=== PATIENT | male | born 1960 | race African-American/Black ===

== ENCOUNTER 2021-05-24 10:51 | Day surgery (SDC) | payer OTHER, SELFPAY ==
[2021-05-18 10:31] VITALS: BMI 36.6
--- NOTE | 2021-05-21 13:42 | HO.ANESPROP2 ---
Documented by User: Jia Larsen NP 05/21/21 13:43 HPI - Anesthesia Eval Consult details Narrative: 60yo M for Colonoscopy [facility] Past Medical History Medical History Arthritis Asthma COVID-19 vaccine series completed Family history of sickle cell anemia PTSD (post-traumatic stress disorder) Ulcerative colitis Surgical History Surgical History H/O colonoscopy Hx of elbow surgery Hx of right knee surgery Hx of shoulder surgery Social History Social History Are you a primary director of career resources to a significant other at home: No Do you presently have visiting nurse or other home services: No Patient Tobacco Use Status: Never used Tobacco Use of substances other than those prescribed or required for medical reasons: Yes Substance Use Type Other:: CBD gummies Have you been hit, kicked, punched, or otherwise hurt by someone within the past year? If so, by whom?: No Are you DNR?: No Advance Directives: No Advance Directives Information Provided: Yes (brochure mailed) Advance Directives on File: No Recently lost weight without trying: No Eating poorly because of decreased appetite: No Nutrition Risks: No Nutritional Risk Poor oral hygiene: No Meds Allergies Allergy/AdvReac Type Severity Reaction Status Date / Time No Known Allergies Allergy Unverified 05/24/21 12:24 Home Medications Medication Instructions Recorded Confirmed Last Taken Type budesonide-formoterol HFA 160 2 puff INHALATION BID 05/18/21 05/18/21 Unknown History mcg-4.5 mcg/actuation aerosol inhaler (Symbicort) bupropion HCl 300 mg 24 hr tablet, 300 mg PO QAM 05/18/21 05/18/21 Unknown History extended release lorazepam 0.5 mg tablet 1.5 mg PO BEDTIME 05/18/21 05/18/21 Unknown History mesalamine 800 mg tablet,delayed 2,400 mg PO TID PRN 05/18/21 05/18/21 Unknown History release (Asacol HD) Exam Exam Date and Time: May 21, 2021 1342 Height,Weight and Vital Signs: Height 5 ft 6 in Weight 102.965 kg Assessment and Plan Assessment Anesthesia Assessment: Chart Reviewed Documented by User: Rose Oliva MD 05/24/21 13:11 PMFSH Active Problems Active Problems: Increased BMI. Denies YVETTE/ snoring Asthma. Rare use of inhaler Past Medical History Medical History Arthritis Asthma COVID-19 vaccine series completed Family history of sickle cell anemia PTSD (post-traumatic stress disorder) Ulcerative colitis Family History Family history of problems with anesthesia: No Surgical History Surgical History H/O colonoscopy Hx of elbow surgery Hx of right knee surgery Hx of shoulder surgery History of Problems with Anesthesia: No Social History Social History Are you a primary director of career resources to a significant other at home: No Do you presently have visiting nurse or other home services: No Patient Tobacco Use Status: Never used Tobacco Use of substances other than those prescribed or required for medical reasons: Yes Substance Use Type Other:: CBD gummies Have you been hit, kicked, punched, or otherwise hurt by someone within the past year? If so, by whom?: No Are you DNR?: No Advance Directives: No Advance Directives Information Provided: Yes (brochure mailed) Advance Directives on File: No Recently lost weight without trying: No Eating poorly because of decreased appetite: No Nutrition Risks: No Nutritional Risk Poor oral hygiene: No Meds Allergies Allergy/AdvReac Type Severity Reaction Status Date / Time No Known Allergies Allergy Unverified 05/24/21 12:24 Home Medications Medication Instructions Recorded Confirmed Last Taken Type budesonide-formoterol HFA 160 2 puff INHALATION BID 05/18/21 05/18/21 Unknown History mcg-4.5 mcg/actuation aerosol inhaler (Symbicort) bupropion HCl 300 mg 24 hr tablet, 300 mg PO QAM 05/18/21 05/18/21 Unknown History extended release lorazepam 0.5 mg tablet 1.5 mg PO BEDTIME 05/18/21 05/18/21 Unknown History mesalamine 800 mg tablet,delayed 2,400 mg PO TID PRN 05/18/21 05/18/21 Unknown History release (Asacol HD) Exam Height,Weight and Vital Signs: Height 5 ft 6 in Weight 102.965 kg Vital Signs Temp Pulse Resp BP Pulse Ox 05/24/21 12:20 97.9 F 62 18 132/73 97 Airway Mallampati Class: II TM Dist: >3cm Neck ROM: Full Loose/Missing/Broken Teeth: No Heart: RRR Lungs: CTAB Assessment and Plan Assessment Anesthesia Assessment: Anesthesia Plan Discussed Final Anesthetic Review Family History of Problems with Anesthesia: No History of Problems with Anesthesia: No NPO: Yes ASA Class: II Final Preanesthetic Review: No Changes in Pt Med Stat, Meds/Allgs Chart Reviewed, Consent Obtained/Reviewed and Anes Risks/Benef Reviewed Patient Risk: Intermediate Procedure Risk: Low Assessment/Block/Sedation in SS: Assess/Block/Sedation-SS Anesthetic Plan Anesthetic Plan: MAC: Disposition: Standard PACU
[2021-05-24 12:20] VITALS: BP 132/73; PULSE 62; RESP 18; TEMP 36.6; O2SAT 97
[2021-05-24] MEDS: Lactated Ringers 1,000 ML 100 ML IVCONT (12:43)
[2021-05-24 14:05] VITALS: BP 99/67; PULSE 65; RESP 15; TEMP 37.2; O2SAT 99
--- NOTE | 2021-05-24 14:05 | P.BOP_ITS ---
Brief Operative Note Date of Service: 05/24/21 Pre-op diagnosis: Ulcerative colitis, Screening Post-op diagnosis: other (R/O Dysplasia) Procedure: Colonoscopy to the cecum and TI with biopsies Surgeon: Flash Herrera Anesthesia: MAC Was an Manager Product Support used for this Procedure?: No Estimated blood loss (mL): 3.0 Pathology: other (A. Asc. colon B. Transverse colon C. Desc. colon D. Sigmoid colon E. Rectum) Condition: stable Disposition: PACU
[2021-05-24 14:20] VITALS: BP 135/87; PULSE 88; RESP 16; TEMP 37.2; O2SAT 99
--- NOTE | 2021-05-25 01:11 | OP_ITS ---
SURGEON: Flash Herrera MD INDICATIONS: The patient presents for evaluation of underlying history of ulcerative colitis and colorectal cancer screening. Full consent has been obtained from him for this, including risks of bleeding and perforation. PREOPERATIVE DIAGNOSIS: POSTOPERATIVE DIAGNOSIS: PROCEDURE PERFORMED: Colonoscopy to cecum and terminal ileum with multiple biopsies. ESTIMATED BLOOD LOSS: COMPLICATIONS: ANESTHESIA: Medication used, monitored anesthesia care. ASSISTANTS: SPECIMENS: PREOPERATIVE DIAGNOSES: History of ulcerative colitis and colorectal cancer screening. POSTOPERATIVE DIAGNOSES: History of ulcerative colitis and colorectal cancer screening, rule out dysplasia, mild diverticulosis, small internal hemorrhoids. DESCRIPTION OF PROCEDURE: The patient was placed in the left lateral decubitus position. The digital rectal exam revealed no abnormalities. The Olympus video pediatric colonoscope was entered into the rectum and advanced easily to the cecum. Once in the cecum, I did identify cecal pouch with appendiceal orifice and a normal-appearing ileocecal valve. The terminal ileum was cannulated and appeared normal. The scope was withdrawn back in the colon. The entire cecum and ileocecal valves appeared normal, other than some very minimal areas of colitis with tiny ulcerations in the cecum, but this was very mild overall. The scope was slowly withdrawn, assessing all mucosal surfaces carefully. Preparation was excellent. I did not visualize any sign of active colitis, polyps, nor angiodysplasia. Random biopsies were obtained in the ascending colon, transverse colon, descending colon, sigmoid colon, and rectum. There was a mild amount of sigmoid diverticulosis. In the rectum, scope was retroflexed, visualizing some small internal hemorrhoids, but no other pathology. The rectal mucosa appeared normal. The scope was straightened and withdrawn from the patient. He tolerated the procedure well and was returned to recovery area in stable condition. IMPRESSION: 1. History of ulcerative colitis, rule out dysplasia. 2. Diverticulosis. PLAN: The results of the biopsy will be checked. Assuming there is no dysplasia, I would recommend a repeat colonoscopy in 5 years. He will otherwise see me on a p.r.n. basis. He was advised not to use any aspirin and NSAIDs for 1 week. MD MELLY Martinez/SOREN / [phone]
== END 2021-05-24 15:40 | disposition home or self-care (01) ==
PROVIDERS: PCP Nurse Practitioner Family; Visit Provider Internal Medicine
PROC: 0DJD8ZZ Inspection of Lower Intestinal Tract, Via Natural or Artificial Opening Endoscopic (ICD-10-PCS; CPT 45378; principal; 2021-05-24 12:10)
DX: Z12.11 Encounter for screening for malignant neoplasm of colon (principal); K51.90 Ulcerative colitis, unspecified, without complications; K57.30 Diverticulosis of large intestine without perforation or abscess without bleeding; K64.8 Other hemorrhoids; J45.909 Unspecified asthma, uncomplicated; F43.10 Post-traumatic stress disorder, unspecified; Z79.51 Long term (current) use of inhaled steroids; Z79.899 Other long term (current) drug therapy
CPT/HCPCS: 45380; 88305

== ENCOUNTER 2023-05-11 19:28 | Outpatient (REF) | payer OTHER, SELFPAY ==
--- NOTE | ~2023-05-11 | MR_ITS ---
EXAMINATION: MR KNEE WITHOUT CONTRAST, RIGHT CLINICAL INFORMATION: Right knee pain and numbness. COMPARISON: Right knee radiographs dated 06/21/2017 and report from a right knee MRI dated 08/22/2005. TECHNIQUE: MRI of the knee without contrast was performed using routine sequences on a high-field scanner. FINDINGS: MENISCI: Medial Meniscus: Heterogeneously increased T2 signal along the tibial articular surface and inner margin of the posterior horn, consistent with irregular fraying. Lateral Meniscus: Complex tearing of the anterior horn contacting both the femoral articular surface and inner margin. Tearing extends to the anterior root. LIGAMENTS: Cruciate: Postsurgical change consistent with anterior cruciate ligament reconstruction. The ligament graft is somewhat attenuated which could represent the surgical result versus a chronic partial tear. No edema or evidence of acute injury. Intact posterior cruciate ligament. Collateral: Intact EXTENSOR MECHANISM: Mild distal quadriceps tendinosis. Intact patellar tendon. Normal patellofemoral alignment. ARTICULAR CARTILAGE/BONE: Patellofemoral Compartment: Lateral patellar facet articular cartilage signal heterogeneity with fissuring and mild subchondral cystic change measuring up to 0.7 cm in ML dimension. Tiny marginal osteophytes. Medial Compartment: Mild articular cartilage signal heterogeneity with tiny marginal osteophytes. Lateral Compartment: Posterior weightbearing full-thickness articular cartilage loss with subchondral cystic change. Marginal osteophytes. JOINT FLUID AND BURSAE: Small joint effusion. MR/MR knee RT wo con IMPRESSION: 1. Irregular fraying along the tibial articular surface and inner margin of the medial meniscus posterior horn. 2. Complex tearing of the lateral meniscus anterior horn contacting both the femoral articular surface and inner margin. Tearing extends to the anterior root. 3. Anterior cruciate ligament reconstruction. The ligament graft is somewhat attenuated which could represent the surgical result versus a chronic partial tear. No evidence of acute ligament injury. 4. Moderate lateral as well as mild patellofemoral and medial compartment osteoarthritis. Small joint effusion.
== END 2023-05-11 19:29 | disposition home or self-care (01) ==
LOC: HO.MRI 19:28
PROVIDERS: PCP Nurse Practitioner Family; Visit Provider Internal Medicine Endocrinology, Diabetes & Metabolism
DX: M25.561 Pain in right knee (principal)
CPT/HCPCS: 73721

== ENCOUNTER 2024-07-01 07:17 | Day surgery (SDC) | payer OTHER, SELFPAY ==
--- OUTSIDE RECORDS SUMMARY | 2024-06-13 10:22 | XMS_ITS ---
Author Organization [facility] Address [address] [place] [address] Care Team Providers Care Surg Rn Name Role Phone Jensen HERRERA, Lang Primary Care Provider Unava Flash Perry Unavailable [phone] Allergies No Known Allergies REASON FOR VISIT Patient presents today for an ulcerative colitis Medications Medication SIG (Take, Route, Frequency, Duration) Notes Start Date End Date Status buPROPion HCl ER (XL) 300 MG Oral for 90 Active LORazepam 0.5 MG Oral for 30 3 pills at night Active Aleve as needed Not-Taking Symbicort 160-4.5 MCG/ACT 2 puffs Inhalation Twice a day Not-Taking Asacol HD 800 MG 3 tablets Orally twice a day He takes this extremely rarely when he thinks he might be having some colitis symptoms, but only takes it for one or 2 days Not-Taking Lialda 1.2 GM 4 Orally Take all 4 together once everyday for 90 days 11/06/2023 Active Mesalamine 400 MG 3 Orally Twice a day for 90 days 08/23/2022 Not-Taking Social History Alcohol Screen Question Answer Notes Did you have a drink contain ing alcohol in the past year? Yes How often did you have a dri nk containing alcohol in the past year? Never (0 point) How many drinks did you have on a typical day when you were drinking in the past year? 1 or 2 drinks (0 point) How often did you have 6 or more drinks on one occasion in the past year? Never (0 point) Points 0 Interpretation Negative Section Notes: Nonsmoker; no sig alcohol Vital Signs Blood pressure systolic 00 mm Hg 12/03/20 24 Blood pressure diastolic 00 mm Hg 024 Height 66.5 in 03/12/2024 Weight 220 lbs 03/12/2024 BMI 34.97 kg/m2 03/12/2024 Encounters Encounter Location Date Provider Diagnosis [facility] [address] [place] [address] 03/12/2024 Flash Herrera Ulcerative colitis without complications, unspecified location K51.90 ; Encounter for screening for malignant neoplasm of colon Z12.11 and Family history of colorectal cancer Z80.0 Assessments Encounter Date Diagnosis (ICD Code) Assessment Notes Treatment Notes Treatment Clinical Notes Section Notes 03/12/2024 Ulcerative colitis without complications, unspecified location (ICD-10 - K51.90) Overall, Arvin appears quite well. His ulcerative colitis remains in clinical remission on his current regimen of the mesalamine. I did advise him to continue this on a long-term basis. Given his long-standing history of colitis, the significant family history of rectal cancer in his sister, and his last colonoscopy approaching 3 years ago, I did recommend a followup colonoscopy for early 2024 in regard to further screening and surveillance. We did review the rationale for this in regard to colorectal cancer prevention and/or early detection. Full consent was obtained for this, including risks of bleeding and perforation. The procedure will be done with monitored anesthesia care. Arvin was very comfortable with this plan. Thank you again for allowing me to participate in Arvin's care. I shall continue to keep you advised of his progress. 03/12/2024 Encounter for screening for malignant neoplasm of colon (ICD-10 - Z12.11) Overall, Arvin appears quite well. His ulcerative colitis remains in clinical remission on his current regimen of the mesalamine. I did advise him to continue this on a long-term basis. Given his long-standing history of colitis, the significant family history of rectal cancer in his sister, and his last colonoscopy approaching 3 years ago, I did recommend a followup colonoscopy for early 2024 in regard to further screening and surveillance. We did review the rationale for this in regard to colorectal cancer prevention and/or early detection. Full consent was obtained for this, including risks of bleeding and perforation. The procedure will be done with monitored anesthesia care. Arvin was very comfortable with this plan. Thank you again for allowing me to participate in Arvin's care. I shall continue to keep you advised of his progress. 03/12/2024 Family history of colorectal cancer (ICD-10 - Z80.0) Overall, Arvin appears quite well. His ulcerative colitis remains in clinical remission on his current regimen of the mesalamine. I did advise him to continue this on a long-term basis. Given his long-standing history of colitis, the significant family history of rectal cancer in his sister, and his last colonoscopy approaching 3 years ago, I did recommend a followup colonoscopy for early 2024 in regard to further screening and surveillance. We did review the rationale for this in regard to colorectal cancer prevention and/or early detection. Full consent was obtained for this, including risks of bleeding and perforation. The procedure will be done with monitored anesthesia care. Arvin was very comfortable with this plan. Thank you again for allowing me to participate in Arvin's care. I shall continue to keep you advised of his progress. Plan Of Treatment Future Test Test Name Order Date COLONOSCOPY 03/12/2024 Next Appt Details Follow Up: prn, Reason: Provider Name:Flash Herrera , 07/01/2024 08:40:00 AM, [address] [place] [address], [phone], Progress Notes * GENIE MAURICIOINDOB:1960 (63 yo M)Acc No.[id number]:03/12/2024 Progress Notes Patient:?ARVIN MAURICIO Provider:?Flash Herrera MD :1960???Age:63 Y???Sex:Male Kg e:03/12/2024 Address:[address] [place], [place] [id number] Pcp:Lang Styles NP Subjective: * Chief Complaints: * ???Patient presents today fo r an ulcerative colitis * HPI: ???incontinence:? I saw Arvin in followup today in regard to his underlying history of ulcerative colitis, family history of colorectal cancer, and discussion of colorectal cancer screening. ?I last saw Arvin in April. Since that time he has been feeling well. His ulcerative colitis has remained in clinical remission. His mesalamine was changed by the [place] pharmacy to the longer acting mesalamine at 4.8 g daily rather than the b.i.d. mesalamine. He enjoys a good appetite, without any significant heartburn or dysphagia. His bowel movements remain regular without any diarrhea nor hematochezia. He denies abdominal pain, signs of jaundice, nor unintentional weight loss. His family history is notable for a sister having developed rectal cancer at approximately age 60. Arvin's last colonoscopy was in April of 2021 and was negative for any polyps, dysplasia, or significant active colitis. * ROS:?General/Constitutional:?Change in appetite?denies.?Chills?denies.?Fatigue?denies.?Ophthalmologic:?Comments?all negative.?ENT:?Comments?all negative.?Respiratory:?hemoptysis?denies.?Cough?denies.?Cardiovascular:?Chest pain?denies.?Orthopnea?denies.?Gastrointestinal:?Comments?See HPI for details.?Genitourinary:?Hematuria?denies.?Dysuria?denies.?Musculoskeletal:?Painful joints?denies.?Weakness?denies.?Skin:?Itching?denies.?Rash?denies.?Neurologic:?Headache?admits.?Seizures?denies.?Psychiatric:?Comments?all negative.? * Medical History:? * Surgical History:?right knee 2006right elbow 2015left shoulder 2014 * Hospitalization/Major Diagno stic Procedure:?No Hospitalization History. * Family History:?Father: dece ased, diagnosed with Heart disease.?Mother: alive, stroke 2004, diagnosed with Heart disease.?Siblings: alive, brother, diagnosed with Diabetes.? One son has Crohn's colitis. Sister with rectal cancer in her 60's. * Social History:?Tobacco Use:?Tobacco Use/Smoking?Patient is a: nonsmoker.?Drugs/Alcohol:?Alcohol Screen?Did you have a drink containing alcohol in the past year??Yes,?How often did you have a drink containing alcohol in the past year??Never (0 point),?How many drinks did you have on a typical day when you were drinking in the past year??1 or 2 drinks (0 point),?How often did you have 6 or more drinks on one occasion in the past year??Never (0 point),?Points?0,?Interpretation?Negative.?Miscellaneous:?Marital status: . 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 ???Nonsmoker; no sig alcohol. * Medications:?TakingbuPROPion HCl ER (XL) 300 MG Tablet Extended Release 24 Hour Oral LORazepam 0.5 MG Tablet Oral , Notes: 3 pills at nightLialda 1.2 GM Tablet Delayed Release 4 Orally Take all 4 together once everydayTaking buPROPion HCl ER (XL) 300 MG Tablet Extended Release 24 Hour Oral Taking LORazepam 0.5 MG Tablet Oral , Notes: 3 pills at nightTaking Lialda 1.2 GM Tablet Delayed Release 4 Orally Take all 4 together once everydayNot-Taking/PRNMesalamine 400 MG Capsule Delayed Release 3 Orally Twice a dayAsacol HD 800 MG Tablet Delayed Release 3 tablets Orally twice a day, Notes: He takes this extremely rarely when he thinks he might be having some colitis symptoms, but only takes it for one or 2 daysAleve as neededSymbicort 160-4.5 MCG/ACT Aerosol 2 puffs Inhalation Twice a dayMedication List reviewed and reconciled with the patientNot-Taking/PRN Mesalamine 400 MG Capsule Delayed Release 3 Orally Twice a dayNot-Taking/PRN Asacol HD 800 MG Tablet Delayed Release 3 tablets Orally twice a day, Notes: He takes this extremely rarely when he thinks he might be having some colitis symptoms, but only takes it for one or 2 daysNot-Taking/PRN Aleve as neededNot-Taking/PRN Symbicort 160-4.5 MCG/ACT Aerosol 2 puffs Inhalation Twice a dayMedication List reviewed and reconciled with the patient * Allergies:?N.K.D.A.yes[Aller gies Verified] Objective: * Vitals:?Wt: 220 lbs, Ht: 66. 5 in, BMI:34.97 Index, BP: 00/00 mm Hg. * Examination: ???General Examination: ?GENERAL APPEARANCE:?pleasant, well nourished, well developed, in no acute distress.?EYES:?sclera non-icteric.?ORAL CAVITY:?mucosa moist.?NECK/THYROID:?no cervical lymphadenopathy, neck supple.?SKIN:?nonjaundiced, no spider angiomata.?HEART:?S1, S2 normal.?LUNGS:?clear to auscultation bilaterally.?ABDOMEN:?normal bowel sounds, no guarding or rigidity, no guarding or rigidity, no masses palpable, soft, nontender, nondistended.?EXTREMITIES:?no edema.?NEUROLOGIC:?alert and oriented.? Assessment: * Assessment: 1.?Ulcerative colitis withou t complications, unspecified location - K51.90 (Primary)?2.?Encounter for screening for malignant neoplasm of colon - Z12.11?3.?Family history of colorectal cancer - Z80.0? Overall, Arvin appears quite well. His ulcerative colitis remains in clinical remission on his current regimen of the mesalamine. I did advise him to continue this on a long-term basis. Given his long-standing history of colitis, the significant family history of rectal cancer in his sister, and his last colonoscopy approaching 3 years ago, I did recommend a followup colonoscopy for early 2024 in regard to further screening and surveillance. We did review the rationale for this in regard to colorectal cancer prevention and/or early detection. Full consent was obtained for this, including risks of bleeding and perforation. The procedure will be done with monitored anesthesia care. Arvin was very comfortable with this plan. Thank you again for allowing me to participate in Arvin's care. I shall continue to keep you advised of his progress. Plan: * Treatment: 2.?Encounter for screening for malignant neoplasm of colon?Procedure: COLONOSCOPY (Ordered for 03/12/2024)* with MACsched fror 07/01/24 a t 9:40 ammiralax 3.?Family history of colorectal cancer?Procedure: COLONOSCOPY (Ordered for 03/12/2024)* with MACsched fror 07/01/24 a t 9:40 ammiralax * Procedure Codes:?3017F COLOR ECTAL CA SCREEN DOC [id number] TOBACCO [id number] BP SCR NOT PRFRM REC REASON NOS * Preventive Medicine:? ??Counseling:?Care goal follow-up plan:?Above Normal BMI Follow-up?Giving encouragement to exercise,?BMI management provided?Yes.? * Follow Up:?prn * * Sign off status: Completed true * Provider:?Flash Herrera MD Date:? 024 Generated for Argenis bishop/Preston/Carolsmitting on:?06/13/2024 10:22 AM EST History and Physical Notes * HPI (History of Present Illness) Category Sub-Category Detail Notes Category Not es incontinence I saw Arvin in followup today in regard to his underlying history of ulcerative colitis, family history of colorectal cancer, and discussion of colorectal cancer screening. I last saw Arvin in April. Since that time he has been feeling well. His ulcerative colitis has remained in clinical remission. His mesalamine was changed by the [place] pharmacy to the longer acting mesalamine at 4.8 g daily rather than the b.i.d. mesalamine. He enjoys a good appetite, without any significant heartburn or dysphagia. His bowel movements remain regular without any diarrhea nor hematochezia. He denies abdominal pain, signs of jaundice, nor unintentional weight loss. His family history is notable for a sister having developed rectal cancer at approximately age 60. Arvin's last colonoscopy was in April of 2021 and was negative for any polyps, dysplasia, or significant active colitis. Examination Category Sub-Category Detail Notes Category Not es General Examination GENERAL APPEARANCE: pleasant , well nourished, well developed, in no acute distress HEAD: EYES: sclera non-icteric EARS: NOSE: THROAT: NECK/THYROID: no cervical lymphade nopathy, neck supple HEART: S1, S2 normal CHEST: LUNGS: clear to auscultatio n bilaterally ABDOMEN: normal bowel sounds, no guarding or rigidity, no guarding or rigidity, no masses palpable, soft, nontender, nondistended NEUROLOGIC: alert and oriented SKIN: nonjaundiced, no spi leobardo angiomata EXTREMITIES: no edema PERIPHERAL PULSES: BACK: BREASTS: MUSCULOSKELETAL: MALE GENITOURINARY: LYMPH NODES: RECTAL EXAM: FEMALE GENITOURINARY: ORAL CAVITY: mucosa moist
--- OUTSIDE RECORDS SUMMARY | 2024-06-13 10:22 | XMS_ITS | Encounter Summary ---
Author Name [facility] [place] [facility] [place] Organization [facility] [facility] [place] Address [address] [place] [address] Care Team Providers Care Referral Agent Name Role Phone LANG STYLES Primary Care Provider Unavailmargarita ble Insurance Providers: All historical and current Section Date Range: From patient's date of to the date document was created. This section includes the names of all active insurance providers for the patient. Insurance Provider Type of Coverage Plan Name Start of Policy Coverage End of Policy Coverage Group Number Member ID Insurance Provider's Telephone Number Policy Kern's Name Patient's Relationship to Policy Kern CAREMARK PRESCRIPT JOSELINE [facility] Oct 08, 2017 RXTHP [id number] DARÍO SANDERS PATIENT [facility] POINT OF SERVICE [place] POS EXPLO RER* Oct 09, 2023 [place] POS EXPLORE R* [id number] [phone] DARÍO SANDERS PATIENT [facility] POINT OF SERVICE [place] POS EXPLO RER Oct 08, 2022 [id number] WYATT SANDERS SPOUSE [facility] POINT OF SERVICE [place] POS Oct 08, 2022 [id number] DARÍO SANDERS PATIENT [facility] PRES[facility] ION [address] [facility] PILGR IM* Oct 09, 2023 NONE [id number] [phone] DARÍO SANDERS PATIENT [facility] PRESCRIPT ION HP Oct 08, 2022 NONE [id number] DARÍO SANDERS PATIENT [facility] PRESCRIPT ION [address] [facility] PILGR IM Oct 08, 2022 NONE [id number] [phone] WYATT SANDERS SPOUSE [facility] POINT OF SERVICE NAVIG ATOR BY [facility] Oct 08, 2017 [id number] DARÍO SANDERS PATIENT Selected Encounter This section includes the information on record at ME for the Encounter. Date/Time Encounter Type Encounter Description Reason Provider Source Jun 07, 2024 08:30 AM OFFICE O/P EST HI 40 MIN PRIMARY CARE/MEDICINE ICD-10-CM M25.561 Pain in right knee JACOB STYLES Arnaud Encounter Template Text not used by ME Assessments - Encounter Diagnoses This section includes the primary and secondary diagnoses documented for the Encounter. Date/Time Primary/Secondary Diagnosis Diagnosis Name Provider Source Jun 07, 2024 08:50 AM PRIMARY Pain in right [facility] Jun 07, 2024 08:50 AM SECONDARY Ulcerative colitis, unspecified, without complications STYLES,WILL [facility] Jun 07, 2024 08:50 AM SECONDARY Unspecified asthma, uncomplicated STYLES,WILL [facility] Plan of Treatment: Future Appointments (+ 6 months) and Future Tests (+/- 45 days) The Plan of Treatment section includes future care activities for the patient from all ME treatmentfacilities. This section includes future appointments and future orders which are active, pending or scheduled. Active, Pending, and Scheduled Orders This section includes a listing of several types of active, pending, and scheduled orders, including clinic medications orders, diagnostic test orders, procedure orders and consult orders; where the start date of the order is 45 days before the date of the Encounter or 45 days after the date of theEncounter. The data comes from all ME treatment facilities. Test Date/Time Test Type Test Details Facility Name Jun 07, 2024 08:44 AM Consult Order [facility] Cons Machine Trimmer's Choice [facility] Lab Results: +/- 30 days of the encounter This section includes the Chemistry and Hematology Lab Results on record with ME for the patient. Radiology Reports and Pathology Reports are provided separately, in subsequent sections. Lab Results This section contains the Chemistry/Hematology Results that were resulted 30 days before or 30 daysafter the date of the Encounter. Date/Time Source Result Type Result - Unit Interpretation Reference Range Comment Jun 07, 2024 08:54 AM [facility] CBC Specimen Type: BLOOD No comment entered. Ordering Provider: JACOBO STYLES Report Released Date/Time: May 31, 2024 08:25 AM Reporting Lab: [address] [address] Performing Lab: [address] [address] WBC 7.21 10*3/uL 4.50-11.00 RBC 5.55 10*6/uL 4.23-5.66 HGB 15.7 g/dL 12.8-17 HCT 45.5 39.2-50.4 MCV 82.0 fL 82-99 MCHC 34.5 g/dL 30.8-35.1 PLT 379 10*3/uL H 140-360 RDW-CV 11.7 L 12.0-16.0 MCH 28.3 pg 26.2-32.6 Jun 07, 2024 08:54 AM [facility] BASIC METABOLIC PANEL (non-fasting) Specimen Type: SERUM No comment entered. Ordering Provider: JACOBO STYLES Report Released Date/Time: May 31, 2024 08:25 AM Reporting Lab: [address] [address] Performing Lab: [address] [address] UREA NITROGEN 12 mg/dL 7-25 GLUCOSE 118 mg/dL H 65-100 SODIUM 140 mmol/L 135-145 POTASSIUM 4.0 mmol/L 3.5-5.0 CHLORIDE 109 mmol/L 100-110 CO2 20 meq/L 20-30 CALCIUM 9.3 mg/dL 8.5-10.2 CREATININE, Serum 1.03 mg/dL 0.50-1.40 eGFR(CKD-EPI 2020) 82 mL/min >60 Jun 07, 2024 08:54 AM [facility] LIPID PANEL, NON FASTING Specimen Type: SERUM No comment entered. Ordering Provider: JACOBO STYLES Report Released Date/Time: May 31, 2024 08:25 AM Reporting Lab: [facility] [address] [facility] [address] Performing Lab: [facility] [address] [facility] [address] CHOLESTEROL 188 mg/dL TRIGLYCERIDE 66 mg/dL 0-150 LDL calculated 139 mg/dL H 0-129 CHOL/HDL 5.2 HDL CHOLESTEROL 36 mg/dL L 40-60 Jun 07, 2024 08:54 AM [facility] LIVER FUNCTION Specimen Type: SERUM No comment entered. Ordering Provider: JACOBO STYLES Report Released Date/Time: May 31, 2024 08:25 AM Reporting Lab: [facility] [address] [facility] [address] Performing Lab: [facility] [address] [facility] [address] PROTEIN,TOTAL 7.8 g/dL 6.0-8.3 ALBUMIN 4.0 g/dL 3.5-5.0 ALKALINE PHOSPHATASE 62 U/L 40-150 AST 23 U/L 5-34 ALT 36 U/L BILIRUBIN, TOTAL 0.6 mg/dL 0.2-1.2 Jun 07, 2024 08:54 AM [facility] PSA Specimen Type: SERUM No comment entered. Ordering Provider: JACOBO STYLES Report Released Date/Time: May 31, 2024 08:25 AM Reporting Lab: [facility] [address] [facility] [address] Performing Lab: [address] [address] PSA 0.79 ng/mL 0.00-4.00 Vital Signs: All taken on the encounter date This section contains inpatient and outpatient Vital Signs collected on the date of the Encounter. Date/Time Temperature Pulse Blood Pressure Respiratory Rate SP02 Pain Height Weight Body Mass Index Source Jun 07, 2024 08:26 AM 98.7 88 140/82 16 98 0 217 34 [facility] Social History: Smoking Status (Most current) and Tobacco Use (All prior to encounter date) This section includes the most current, and the historical, smoking and tobacco- related health factors from the ME facility where the Encounter took place. Current Smoking Status This section includes the most current smoking, or tobacco-related health factor, from the ME facility where the Encounter took place. Date/Time Current Smoking Status Comment Facil ity Dec 07, 2023 08:30 AM ME-TOBACCO NEVER USED ME [facility] Tobacco Use History This section includes a history of the smoking, or tobacco-related health factors, that were collected on or before the date of the Encounter. The data comes from the ME facility where the Encounter took place. Date/Time Smoking Status/Tobacco Use Comment F acility Jan 03, 2023 09:00 AM VA-TOBACCO NEVER USED [facility] Encounter Notes: All associated encounter notes This section contains the clinical notes associated to the Encounter. Date/Time Encounter Note(s) Provider Source Jun 07, 2024 08:44 AM PRIMARY CARE NURSE PRACTITIONER OUTPATIENT NOTE: LOCAL TITLE: NURSE PRACTITIONER OUTPATIENT NOTE STANDARD TITLE: PRIMARY CARE NURSE PRACTITIONER OUTPATIENT NOTE DATE OF NOTE: JUN 07, 2024@08:44 ENTRY DATE: JUN 07, 2024@08:44:14 AUTHOR: LANG STYLES COSIGNER: URGENCY: STATUS: COMPLETED Chief complaint: Patient is a 63 year old Lookout. HPI: Pleasant male Lookout here to follow up. Feeling well. Ongoing issues with right knee pain. Some benefit with gel but he is interested in a platelet rich plasma injection, he will follow back with ortho. Allergies: Patient has answered NKA The following VA and Non-VA meds were reconciled with patient. The patient was educated on the use of the medications including indication and side effects. Active and Recently Outpatient Medications (excluding Supplies): Active Outpatient Medications Status 1) LOTEPREDNOL ETABONATE 0.5% OPH SUSP INSTILL 1 DROP INTO THE ACTIVE LEFT EYE ONCE DAILY Indication: FOR INFLAMMATION OF THE EYE 2) MELOXICAM 15MG TAB TAKE ONE TABLET BY MOUTH ONCE DAILY ACTIVE 3) MESALAMINE 1200MG EC TAB TAKE FOUR TABLETS BY MOUTH ONCE ACTIVE (S) DAILY Active Non-VA Medications Status 1) Non-VA BUPROPION HCL 300MG 24HR SA TAB 300MG BY MOUTH ONCE ACTIVE DAILY Indication: FOR DEPRESSION 2) Non-VA LORAZEPAM 0.5MG TAB 0.5MG BY MOUTH THREE TIMES DAILY ACTIVE NEEDED Indication: FOR ANXIETY 3) Non-VA MARIJUANA MISCELLANEOUS GUMMIES DIRECTED AT ACTIVE BEDTIME 4) Non-VA MESALAMINE 400MG EC CAP 400MG BY MOUTH ONCE DAILY ACTIVE Indication: FOR ULCERATIVE COLITIS 7 Total Medications Review of Systems: Constitutional: (-)for Fevers, chills, weakness, nights sweats On examination: 98.7 F [37.1 C] (06/07/2024 08:26)140/82 (06/07/2024 08:26)88 (06/07/2024 08:26)16 (06/07/2024 08:26)0 (06/07/2024 08:26)BMI: 34.1217 lb [98.43 kg] (06/07/2024 08:26) Lookout is alert and oriented X3 Cardiovasc: 2plus carotids without bruits, no JVD Heart Reguler rate and rhythm NL S1S2 no S3 or murmur Respiration: Normal respiratory effort, lungs clear ABD: Benign normal active bowel sounds no HSM no rebound or referred pain EXT: no clubbing, edema, or cyanosis All diagnostics from past month were reviewed with patient. Assessment/plan: Active problems - Computerized Problem List is the source for the followin. Right knee pain - see above 2. Asthma - stable 3. Ulcerative colitis - follows [facility], has c scope scheduled 07/01/2024. Health Care Maintenance: declines vaccines Today I spent 40 minutes on some or all of the following: chart review, history, physical examination, treatment planning, education and counseling of the patient/family/caregiver services home, placing orders, communicating with other health care providers, completing health and wellness screenings (see below) and documentation in the electronic health record. Follow up visit in 6 mos. Suicide Screen: C-SSRS Screening [place] Suicide Severity Rating Scale (C-SSRS) screener 1. Over the past month, have you wished you were or wished you could go to sleep and not wake up? No 2. Over the past month, have you had any actual thoughts of killing yourself? No 3. Over the past month, have you been thinking about how you might do this? Response not required due to responses to other questions. 4. Over the past month, have you had these thoughts and had some intention of acting on them? Response not required due to responses to other questions. 5. Over the past month, have you started to work out or worked out the details of how to kill yourself? Response not required due to responses to other questions. 6. If yes, at any time in the past month did you intend to carry out this plan? Response not required due to responses to other questions. 7. In your lifetime, have you ever done anything, started to do anything, or prepared to do anything to end your life (for example, collected pills, obtained a gun, gave away valuables, went to the roof but didn't jump)? No 8. If YES, was this within the past 3 months? Response not required due to responses to other questions. Colonoscopy GAP Reminder: Recommendations are needed in the clinical reminder system following the patient's most recent colorectal cancer screening/surveillance test (Colonoscopy, Sigmoidoscopy or CT Colonography) Colorectal cancer screening already scheduled or in process of being scheduled. Comment: [facility] 07/01/2024 Pneumococcal Conjugate Vaccine (PCV15/PCV20/PCV21): Refuses PCV vaccine Immunization: PNEUMOCOCCAL CONJUGATE, UNSPECIFIED FORMULATION Refusal Reason: PATIENT DECISION Patient refuses all immunization(s) in the PneumoPCV group Date Documented: 06/07/24 08:48 Influenza Immunization: Deferral / Refusal The patient declines to receive the recommended dose of seasonal influenza vaccine. Immunization: INFLUENZA, UNSPECIFIED FORMULATION Refusal Reason: PATIENT DECISION Patient refuses all immunization(s) in the FLU group Date Documented: 06/07/24 08:48 Medication Reconciliation: Outpatient: Has the patient been taking medications as documented in the EMLR? YES: The patient has been taking medications as documented in the EMLR. Essential Medication List for Review used to complete this medication reconciliation. INCLUDED IN THIS LIST: Alphabetical list of active outpatient prescriptions dispensed from this ME (local) and dispensed from another ME or [facility] facility (remote) as well as inpatient orders (local, pending and active), local clinic medications, locally documented non-VA medications, and local prescriptions that have or been discontinued in the past 90 days. - All changes in medications, including all non-VA/Herbal/OTC medications were entered into CPRS. - If there were any medications the patient should no longer take, they were discontinued. - The patient/caregiver was instructed to update this list, discard old lists, and take this list to the next appointment, whether with a VA or non-VA provider. COVID-19 Immunization: Refused Moderna Monovalent COVID-19 vaccine Immunization: COVID-19 (MODERNA), MRNA, LNP-S, PF, 50 MCG/0.5 ML (AGES 12+ YEARS) Refusal Reason: PATIENT DECISION Patient refuses all immunization(s) in the COVID-19 group Date Documented: 06/07/24 08:49 Herpes Zoster (Shingles) Vaccine: The patient declines to receive the recommended dose of zoster (shingles) vaccine. Immunization: ZOSTER RECOMBINANT Refusal Reason: PATIENT DECISION Patient refuses all immunization(s) in the ZOSTER group Date Documented: 06/07/24 08:49 RSV Immunization: Respiratory Syncytial Virus (RSV) Vaccine: Refused GlaxoSmithKline (RSV vaccine, adjuvanted, Arexvy). Immunization: RSV, RECOMBINANT, PROTEIN SUBUNIT RSVPREF3, ADJUVANT RECONSTITUTED, 0.5 ML, PF Refusal Reason: PATIENT DECISION Patient refuses all immunization(s) in the RSV group Date Documented: 06/07/24 08:49 Sexual Orientation: The patient thinks of their sexual orientation as: Straight or Heterosexual /es/ Lang Styles DNP, RETAIL CASHIER-BC, CNL Primary Care Nurse Practitioner Signed: 06/07/2024 08:50 LANG STYLES CNTRL [facility]
--- OUTSIDE RECORDS SUMMARY | 2024-06-13 10:22 | XMS_ITS | Encounter Summary ---
Author Name [facility] [place] Organization [place] Address [address] [place] [address] Care Team Providers Care Recreation Center Director Name Role Phone VERA CALI Primary Care Provider Unavailmargarita ble Insurance Providers: [...] Patient's Relationship to Policy Kern CAREMARK PRESCRIPT ION [facility] Oct 08, 2017 RXTHP [id number] [phone] DARÍO SANDERS PATIENT [facility] POINT OF SERVICE MA POS EXPLO RER* Oct 09, 2023 MA POS EXPLORE R* [id number] [phone] TOMMYDARÍO MEHTA PATIENT [facility] POINT OF SERVICE MA POS EXPLO RER Oct 08, 2022 [id number] [phone] WYATT SANDERS SPOUSE [facility] POINT OF SERVICE MA POS Oct 08, 2022 [id number] [phone] TOMMYDARÍO MEHTA PATIENT [facility] PRESCRIPT ION [address] PILGR IM* Oct 09, 2023 NONE [id number] TOMMYDARÍO MEHTA PATIENT [facility] PRESCRIPT ION HP Oct 08, 2022 NONE [id number] DARÍO SANDERS JANINE PATIENT [facility] PRESCRIPT ION [address] RD PILGR IM Oct 08, 2022 NONE [id number] WYATT SANDERS SPOUSE [facility] POINT OF SERVICE NAVIG ATOR BY [facility] Oct 08, 2017 [id number] [phone] DARÍO SANDERS JANINE PATIENT Selected Encounter This section includes the information on record at PA for the Encounter. Date/Time Encounter Type Encounter Description Reason Pro vider Source Jun 07, 2024 12:00 AM Outpatient Encounter EVENT (HISTORICAL) IHE Encounter Template Text not used by PA Plan of Treatment: Future Appointments (+ 6 months) and Future Tests (+/- 45 days) The Plan of Treatment section includes future care activities for the patient from all PA treatmentfacilities. This section includes future appointments and [...] of theEncounter. The data comes from all PA treatment facilities. Test Date/Time Test Type Test Details Facility Name Jun 07, 2024 08:44 AM Consult Order [facility] Cons Cushion Worker's Choice [facility] [employer] [facility] Lab Results: +/- 30 days of the encounter This section includes the Chemistry and Hematology Lab Results on record with PA for the patient. Radiology Reports and Pathology Reports are provided separately, in subsequent sections. Lab Results This section contains the Chemistry/Hematology Results that were resulted 30 days before or 30 daysafter the date of the Encounter. Date/Time Source Result Type Result - Unit Interpretation Reference Range Comment Jun 07, 2024 08:54 AM [facility] [employer] [facility] CBC Specimen Type: BLOOD No comment entered. Ordering Provider: JACOBO CALI Report Released Date/Time: May 31, 2024 08:25 AM Reporting Lab: [facility] [employer] [address] [address] Performing Lab: [facility] [address] [facility] [address] WBC 7.21 10*3/uL 4.50-11.00 RBC 5.55 10*6/uL 4.23-5.66 HGB 15.7 g/dL 12.8-17 HCT 45.5 39.2-50.4 MCV 82.0 fL 82-99 MCHC 34.5 g/dL 30.8-35.1 PLT 379 10*3/uL H 140-360 RDW-CV 11.7 L 12.0-16.0 MCH 28.3 pg 26.2-32.6 Jun 07, 2024 08:54 AM [facility] BASIC METABOLIC PANEL (non-fasting) Specimen Type: SERUM No comment entered. Ordering Provider: JACOBO CALI Report Released Date/Time: May 31, 2024 08:25 AM Reporting Lab: [facility] [address] [facility] [address] Performing Lab: [address] [address] UREA NITROGEN 12 mg/dL 7-25 GLUCOSE 118 mg/dL H 65-100 SODIUM 140 mmol/L 135-145 POTASSIUM 4.0 mmol/L 3.5-5.0 CHLORIDE 109 mmol/L 100-110 CO2 20 meq/L 20-30 CALCIUM 9.3 mg/dL 8.5-10.2 CREATININE, Serum 1.03 mg/dL 0.50-1.40 eGFR(CKD-EPI 2020) 82 mL/min >60 Jun 07, 2024 08:54 AM [facility] LIPID PANEL, NON FASTING Specimen Type: SERUM No comment entered. Ordering Provider: JACOBO CALI Report Released Date/Time: May 31, 2024 08:25 AM Reporting Lab: [facility] [address] [facility] [address] Performing Lab: [address] [address] CHOLESTEROL 188 mg/dL TRIGLYCERIDE 66 mg/dL 0-150 LDL calculated 139 mg/dL H 0-129 CHOL/HDL 5.2 HDL CHOLESTEROL 36 mg/dL L 40-60 Jun 07, 2024 08:54 AM [facility] LIVER FUNCTION Specimen Type: SERUM No comment entered. Ordering Provider: JACOBO CALI Report Released Date/Time: May 31, 2024 08:25 AM Reporting Lab: [address] [address] Performing Lab: [address] [address] PROTEIN,TOTAL 7.8 g/dL 6.0-8.3 ALBUMIN 4.0 g/dL 3.5-5.0 ALKALINE PHOSPHATASE 62 U/L 40-150 AST 23 U/L 5-34 ALT 36 U/L BILIRUBIN, TOTAL 0.6 mg/dL 0.2-1.2 Jun 07, 2024 08:54 AM [facility] PSA Specimen Type: SERUM No comment entered. Ordering Provider: JACOBO CALI Report Released Date/Time: May 31, 2024 08:25 AM Reporting Lab: [address] [address] Performing Lab: [address] [address] PSA 0.79 ng/mL 0.00-4.00 Vital Signs: All taken on the encounter date This section contains inpatient and outpatient Vital Signs collected on the date of the Encounter. Date/Time Temperature Pulse Blood Pressure Respiratory Rate SP02 Pain Height Weight Body Mass Index Source Jun 07, 2024 08:26 AM 98.7 88 140/82 16 98 0 217 34 [facility] Social History: Smoking Status (Most current) and Tobacco Use (All prior to encounter date) This section includes the most current, and the historical, smoking and tobacco- related health factors from the [place] facility where the Encounter took place. Current Smoking Status This section includes the most current smoking, or tobacco-related health factor, from the [place] facility where the Encounter took place. Date/Time Current Smoking Status Comment Facil hector Dec 07, 2023 08:30 AM VA-TOBACCO NEVER USED [facility] Tobacco Use History This section includes a history of the smoking, or tobacco-related health factors, that were collected on or before the date of the Encounter. The data comes from the [place] facility where the Encounter took place. Date/Time Smoking Status/Tobacco Use Comment F acility Jan 03, 2023 09:00 AM PA-TOBACCO NEVER USED [facility]
--- OUTSIDE RECORDS SUMMARY | 2024-06-13 10:22 | XMS_ITS ---
Author Organization [facility] Address [address] [place] [phone] Care Team Providers Care Hollow Tile Partition Erector Name Role Phone Jensen HERRERA, Lang Primary Care Provider Unava ilFlash Franco [phone] Encounters Encounter Location Date Provider Diagnosis [facility] [address] [place] [id number] 03/14/2024 Flash Herrera Plan Of Treatment Next Appt Details Provider Name:Flash Herrera , 07/01/2024 08:40:00 AM, [address] [place] [address] , [place], [place], [phone], Progress Notes * LA MAURICIOOB:1960 (63 yo M)Acc No.[id number]:03/14/2024 Patient:?ARVIN MAURICIO :1960???Age:63 Y???Sex:Male Address:[place], [address] * true * Date:? Generated for Printi dario/Preston/eTransmitting on:?06/13/2024 10:21 AM EST
--- OUTSIDE RECORDS SUMMARY | 2024-06-13 10:22 | XMS_ITS | Continuity of Care Document ---
Author Name [facility] Organization [facility] Care Team Providers Care Monument Carver Name Role Phone [facility] Unavailable Unavailable Problems Combined list of problems from Department of Defense and Veterans Affairs facilities. It does not include entries that were removed or entered in error. Problem Status Onset Date Problem Type Date of Resolution Comments Source Asthma ([facility] [id number]) [facility] Chronic Post-Traumatic Stress Disorder ([facility] [id number]) Active Condition [facility] Exposure to potentially hazardous substance Active Condition [facility] Right knee pain Active Condition [facility] Ulcerative colitis Active Condition Jul 03, 2023 Entered By: COURTNEY CALI AM Comment: repeat colonoscopy April 2024 [facility] Diagnosis: ICD-10-CM M25.561 Pain in right knee Active Diagnosis [facility] Diagnosis: ICD-10-CM 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, left eye Active Diagnosis [facility] Diagnosis: ICD-10-CM Z46.0 Encounter for fit/adjst of spectacles and contact lenses Active Diagnosis [facility] [place] [facility] Diagnosis: ICD-10-CM H25.13 Age-related nuclear cataract, bilateral Active Diagnosis [facility] Diagnosis: ICD-10-CM Z04.89 Encounter for examination and observation for oth reasons Active Diagnosis [facility] ([id number]) Diagnosis: ICD-10-CM 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, left eye Active Diagnosis [facility] Diagnosis: ICD-10-CM 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ine findings, low risk, bilateral [facility] [place] [facility] Diagnosis: ICD-10-CM H20.012 Primary iridocyclitis, left eye Active Diagnosis [facility] [place] [facility] Diagnosis: ICD-10-CM H10.32 Unspecified acute conjunctivitis, left eye [facility] Diagnosis: ICD-10-CM Z71.89 Other specified counseling Active [facility] [place] [facility] Diagnosis: ICD-10-CM J45.998 Other asthma Active Diagnosis [facility] Diagnosis: ICD-10-CM J45.909 Unspecified asthma, uncomplicated Active Diagnosis [facility] [place] [facility] Diagnosis: ICD-10-CM F43.12 Post-traumatic stress disorder, chronic Active Diagnosis [facility] [place] [facility] Diagnosis: ICD-10-CM K08.9 Disorder of teeth and supporting structures, unspecified Active Diagnosis [facility] [place] [facility] Diagnosis: ICD-10-CM H52.03 Hypermetropia, bilateral Active Diagnosis [facility] [place] [facility] Medications Combined list of outpatient medications from Department of Defense and Veterans Affairs facilities.Medications provided include 1) outpatient medications from the last 15 months, and 2) patient-reported medications. Medication Details Route Status Patient Instructions Prescription Expires Prescription Number Last Dispense Date Ordering Provider Order Date Order Qty Source ATROPINE SO4 1% SOLN,OPH INSTILL 1 DROP INTO THE LEFT EYE TWICE DAILY FOR DILATED PUPIL OPHTHA LMIC 08/10/2023 [id number] CARL OSMAN 2023 15 [facility] BISACODYL 5MG TAB,EC TAKE FOUR TABLETS BY MOUTH ONE TIME TAKE 2 TABLETS AT 3PM AND THEN TAKE 2 TABLETS AT 7PM ORAL DISCONT INUED (EDIT) 04/15/2024 [id number] 4 KAI GANT ERT 2023 4 [facility] BISACODYL 5MG TAB,EC TAKE TWO TABLETS BY MOUTH TWICE DAILY TAKE 2 TABLETS AT 3PM AND THEN TAKE 2 TABLETS AT 7PM ORAL 04/17/2024 [id number] 4 KAI GANT ERT 2023 8 [facility] BUDESONIDE/ FORMOTEROL INHL,ORAL INHALE BY MOUTH TWICE DAILY RESPIR ATORY (INHAL ATION) ACTIVE VERA CALI 2022 [facility] BUPROPION HCL 300MG 24HR TAB,SA TAKE ONE TABLET BY MOUTH ONCE DAILY ORAL ACTIVE VERA CALI 2022 [facility] DEXAMETHASO NE 0.1%/TOBRAM YCIN 0.3% OINT,OPH APPLY SMALL AMOUNT INTO THE LEFT EYE AT BEDTIME FOR INFLAMMA TION OF THE EYE OPHTHA LMIC DISCONT INUED BY PROVIDE R 07/17/2024 [id number] 4 Melina PERES 2023 1 [facility] [place] [facility] DIFLUPREDNA TE 0.05% EMULSION,OP H INSTILL 1 DROP INTO THE LEFT EYE FOUR TIMES A DAY FOR INFLAMMA TION OF THE EYE POST-BRE JOSH OPHTHA LMIC 08/16/2023 [id number] 4 Melina PERES 2023 10 [facility] LORAZEPAM 0.5MG TAB TAKE ONE TABLET BY MOUTH THREE TIMES A DAY NEEDED ORAL ACTIVE VERA CALI 2022 [facility] LOTEPREDNOL ETABONATE 0.5% SUSP,OPH INSTILL 1 DROP INTO THE LEFT EYE ONCE DAILY FOR INFLAMMA TION OF THE EYE OPHTHA LMIC ACTIVE 05/03/2025 [id number] 5 Melina PERES 2024 5 [facility] [place] [facility] MARIJUANA MISCELLANEO US USE GUMMIES DIRECTED HS NOT APPLIC ABLE ACTIVE VERA CALI 2022 [facility] [place] [facility] MELOXICAM 15MG TAB TAKE ONE TABLET BY MOUTH ONCE DAILY ORAL ACTIVE 01/01/2025 [id number] 5 MARÍA ELENA SALOOMN 2023 30 [facility] MESALAMINE 1200MG TAB,EC TAKE FOUR TABLETS BY MOUTH ONCE DAILY ORAL SUSPEND ED 11/06/2024 [id number] 5 KAI GANT ERT 2023 360 [facility] MESALAMINE 400MG CAP,EC TAKE 1 CAPSULE BY MOUTH ONCE DAILY ORAL ACTIVE VERA CALI 2022 [facility] OMEPRAZOLE 10MG CAP,EC TAKE ONE CAPSULE BY MOUTH EVERY MORNING 30 MINUTES BEFORE BREAKFAS T ORAL 08/13/2023 [id number] 4 OSMAN,LAC EY J 2023 3 [facility] POLYETHYLEN E GLYCOL 3350 PWDR,ORAL TAKE ENTIRE CONTENTS OF 238GM BOTTLE BY MOUTH ONE TIME (MIX WITH CLEAR LIQUID AND DRINK INSTRUCT ED BY GI PROVIDER ) ORAL 04/15/2024 [id number] 4 KAI GANT ERT 2023 238 [facility] PREDNISOLON E ACETATE 1% SUSP,OPH INSTILL 1 DROP INTO THE LEFT EYE TWICE DAILY FOR 14 DAYS, THEN INSTILL 1 DROP ONCE DAILY FOR 14 DAYS FOR EYE INFLAMMA TION OPHTHA LMIC 09/24/2023 [id number] 4 OSMAN,LAC EY J 2023 5 [facility] PREDNISOLON E ACETATE 1% SUSP,OPH INSTILL 1 DROP INTO THE LEFT EYE EVERY HOUR OPHTHA LMIC 08/10/2023 [id number] 4 OSMAN,LAC EY J 2023 10 [facility] PREDNISONE 20MG TAB TAKE TWO TABLETS BY MOUTH ONCE DAILY ORAL 08/13/2023 [id number] 4 OSMAN,LAC EY J 2023 6 [facility] Immunizations Combined list of available immunizations from the Department of Defense and Veterans Affairs facilities. Immunization Series Date Given Administered By Site Reaction Lot Number CVX Code Drug Crystal Growing Technician Status Comments Source COVID-19 (MODERNA), MRNA, LNP-S, PF, 50 MCG/0.5 ML (AGES 12+ YEARS) 2023 TENISHA SHULTZA LEFT DELTO ID [id number] complet ed [facility] TDAP 2023 TENISHA SHULTZA RIGHT DELTO ID [id number] complet ed [facility] Results Combined list of recent chemistry, hematology and other laboratory results from Department of Defense and Veterans Affairs, ranging from 15 months to all on record, depending upon the facility. Order Name Results Value Reference Range Date Interpretation Specimen Comments Source CBC LEUKOCYTES [#/VOLUME] IN BLOOD BY AUTOMATED COUNT 7.21 10*3/u L 4.50 - 11.00 06/07 Specimen Type: BLOOD No comment entered. Ordering Provider: SANDRA CALI Report Released Date/Time: May 31, 2024 08:25 AM Reporting Lab: [facility] [place] [address] [address] Performing Lab: [facility] [place] [address] [address] [facility] CBC ERYTHROCYTE S [#/VOLUME] IN BLOOD BY AUTOMATED COUNT 5.55 10*6/u L 4.23 - 5.66 06/07 Specimen Type: BLOOD No comment entered. Ordering Provider: SANDRA CALI Report Released Date/Time: May 31, 2024 08:25 AM Reporting Lab: [facility] [place] [address] [address] Performing Lab: [facility] [place] [facility] [address] [facility] [address] [facility] [place] [facility] CBC HEMOGLOBIN [MASS/VOLUM E] IN BLOOD 15.7 g/dL 12.8 - 17 06/07 Specimen Type: BLOOD No comment entered. Ordering Provider: SANDRA CALI Report Released Date/Time: May 31, 2024 08:25 AM Reporting Lab: [facility] [place] [address] [address] Performing Lab: [facility] [place] [address] [address] [facility] [place] [facility] CBC HEMATOCRIT [VOLUME FRACTION] OF BLOOD BY AUTOMATED COUNT 45.5 39.2 - 50.4 06/07 Specimen Type: BLOOD No comment entered. Ordering Provider: SANDRA CALI Report Released Date/Time: May 31, 2024 08:25 AM Reporting Lab: [facility] [place] [facility] [address] [facility] [address] Performing Lab: [facility] [place] [facility] [address] [facility] [address] [facility] [place] [facility] CBC MCV [ENTITIC VOLUME] BY AUTOMATED COUNT 82.0 fL 82 - 99 06/07 Specimen Type: BLOOD No comment entered. Ordering Provider: SANDRA CALI Report Released Date/Time: May 31, 2024 08:25 AM Reporting Lab: [facility] [place] [address] [address] Performing Lab: [facility] [place] [address] [address] [facility] [place] [facility] CBC MCHC [MASS/VOLUM E] BY AUTOMATED COUNT 34.5 g/dL 30.8 - 35.1 06/07 Specimen Type: BLOOD No comment entered. Ordering Provider: SANDRA CALI Report Released Date/Time: May 31, 2024 08:25 AM Reporting Lab: [facility] [place] [address] [address] Performing Lab: [facility] [place] [facility] [address] [facility] [address] [facility] [place] [facility] CBC PLATELETS [#/VOLUME] IN BLOOD BY AUTOMATED COUNT 379 10*3/u L 140 - 360 06/07 H Specimen Type: BLOOD No comment entered. Ordering Provider: SANDRA CALI Report Released Date/Time: May 31, 2024 08:25 AM Reporting Lab: [facility] [place] [address] [address] Performing Lab: [facility] [place] [facility] [address] [facility] [address] [facility] [place] [facility] CBC ERYTHROCYTE DISTRIBUTIO N WIDTH [RATIO] BY AUTOMATED COUNT 11.7 12.0 - 16.0 06/07 L Specimen Type: BLOOD No comment entered. Ordering Provider: SANDRA CALI Report Released Date/Time: May 31, 2024 08:25 AM Reporting Lab: [facility] [place] [facility] [address] [facility] [address] Performing Lab: [facility] [place] [facility] [address] [facility] [address] [facility] [place] [facility] CBC MCH [ENTITIC MASS] BY AUTOMATED COUNT 28.3 pg 26.2 - 32.6 06/07 Specimen Type: BLOOD No comment entered. Ordering Provider: SANDRA CALI Report Released Date/Time: May 31, 2024 08:25 AM Reporting Lab: [facility] [place] [facility] [address] [facility] [address] Performing Lab: [facility] [place] [address] [address] [facility] [place] [facility] BASIC METABOLIC PANEL (non-fast ing) UREA NITROGEN [MASS/VOLUM E] IN SERUM OR PLASMA 12 mg/dL 7 - 25 06/07 Specimen Type: SERUM No comment entered. Ordering Provider: SANDRA CALI Report Released Date/Time: May 31, 2024 08:25 AM Reporting Lab: [facility] [place] [address] [address] Performing Lab: [facility] [place] [address] [address] [facility] [place] [facility] BASIC METABOLIC PANEL (non-fast ing) GLUCOSE [MASS/VOLUM E] IN SERUM OR PLASMA 118 mg/dL 65 - 100 06/07 H Specimen Type: SERUM No comment entered. Ordering Provider: SANDRA CALI Report Released Date/Time: May 31, 2024 08:25 AM Reporting Lab: [facility] [place] [facility] [address] [facility] [address] Performing Lab: [facility] [place] [facility] [address] [facility] [address] [facility] [place] [facility] BASIC METABOLIC PANEL (non-fast ing) SODIUM [MOLES/VOLU ME] IN SERUM OR PLASMA 140 mmol/L 135 - 145 06/07 Specimen Type: SERUM No comment entered. Ordering Provider: SANDRA CALI Report Released Date/Time: May 31, 2024 08:25 AM Reporting Lab: [facility] [place] [facility] [address] [facility] [address] Performing Lab: [facility] [place] [facility] [address] [facility] [address] [facility] [place] [facility] BASIC METABOLIC PANEL (non-fast ing) POTASSIUM [MOLES/VOLU ME] IN SERUM OR PLASMA 4.0 mmol/L 3.5 - 5.0 06/07 Specimen Type: SERUM No comment entered. Ordering Provider: SANDRA CALI Report Released Date/Time: May 31, 2024 08:25 AM Reporting Lab: [facility] [place] [facility] [address] [facility] [address] Performing Lab: [facility] [place] [facility] [address] [facility] [address] [facility] [place] [facility] BASIC METABOLIC PANEL (non-fast ing) CHLORIDE [MOLES/VOLU ME] IN SERUM OR PLASMA 109 mmol/L 100 - 110 06/07 Specimen Type: SERUM No comment entered. Ordering Provider: SANDRA CALI Report Released Date/Time: May 31, 2024 08:25 AM Reporting Lab: [facility] [place] [facility] [address] [facility] [address] Performing Lab: [facility] [place] [address] [address] [facility] [place] [facility] BASIC METABOLIC PANEL (non-fast ing) CARBON DIOXIDE, TOTAL [MOLES/VOLU ME] IN SERUM OR PLASMA 20 meq/L 20 - 30 06/07 Specimen Type: SERUM No comment entered. Ordering Provider: SANDRA CALI Report Released Date/Time: May 31, 2024 08:25 AM Reporting Lab: [address] [address] Performing Lab: [address] [address] [facility] BASIC METABOLIC PANEL (non-fast ing) CALCIUM [MASS/VOLUM E] IN SERUM OR PLASMA 9.3 mg/dL 8.5 - 10.2 06/07 Specimen Type: SERUM No comment entered. Ordering Provider: SANDRA CALI Report Released Date/Time: May 31, 2024 08:25 AM Reporting Lab: [address] [address] Performing Lab: [address] [address] [facility] BASIC METABOLIC PANEL (non-fast ing) CREATININE [MASS/VOLUM E] IN SERUM OR PLASMA 1.03 mg/dL 0.50 - 1.40 06/07 Specimen Type: SERUM No comment entered. Ordering Provider: SANDRA CALI Report Released Date/Time: May 31, 2024 08:25 AM Reporting Lab: [address] [address] Performing Lab: [address] [address] [facility] BASIC METABOLIC PANEL (non-fast ing) GLOMERULAR FILTRATION RATE/1.73 SQ M.PREDICTED [VOLUME RATE/AREA] IN SERUM, PLASMA OR BLOOD BY CREATININE- BASED FORMULA (CKD-EPI 2020) 82 mL/min 60 06/07 Specimen Type: SERUM No comment entered. Ordering Provider: SANDRA CALI Report Released Date/Time: May 31, 2024 08:25 AM Reporting Lab: [facility] [place] [facility] [address] [facility] [address] Performing Lab: [facility] [place] [facility] [address] [facility] [address] [facility] [place] [facility] LIPID PANEL, NON FASTING CHOLESTEROL [MASS/VOLUM E] IN SERUM OR PLASMA 188 mg/dL 06/07 Specimen Type: SERUM No comment entered. Ordering Provider: SANDRA CALI Report Released Date/Time: May 31, 2024 08:25 AM Reporting Lab: [facility] [place] [facility] [address] [facility] [address] Performing Lab: [facility] [place] [facility] [address] [facility] [address] [facility] [place] [facility] LIPID PANEL, NON FASTING TRIGLYCERID E [MASS/VOLUM E] IN SERUM OR PLASMA 66 mg/dL 0 - 150 06/07 Specimen Type: SERUM No comment entered. Ordering Provider: SANDRA CALI Report Released Date/Time: May 31, 2024 08:25 AM Reporting Lab: [facility] [place] [facility] [address] [facility] [address] Performing Lab: [facility] [place] [facility] [address] [facility] [address] [facility] [place] [facility] LIPID PANEL, NON FASTING CHOLESTEROL IN LDL [MASS/VOLUM E] IN SERUM OR PLASMA BY CALCULATION 139 mg/dL 0 - 129 06/07 H Specimen Type: SERUM No comment entered. Ordering Provider: SANDRA CALI Report Released Date/Time: May 31, 2024 08:25 AM Reporting Lab: [facility] [place] [facility] [address] [facility] [address] Performing Lab: [facility] [place] [facility] [address] [facility] [address] [facility] [place] [facility] LIPID PANEL, NON FASTING CHOLESTEROL .TOTAL/CHOL ESTEROL IN HDL [MASS RATIO] IN SERUM OR PLASMA 5.2 06/07 Specimen Type: SERUM No comment entered. Ordering Provider: SANDRA CALI Report Released Date/Time: May 31, 2024 08:25 AM Reporting Lab: [facility] [place] [facility] [address] [facility] [address] Performing Lab: [facility] [place] [facility] [address] [facility] [address] [facility] [place] [facility] LIPID PANEL, NON FASTING CHOLESTEROL IN HDL [MASS/VOLUM E] IN SERUM OR PLASMA 36 mg/dL 40 - 60 06/07 L Specimen Type: SERUM No comment entered. Ordering Provider: SANDRA CALI Report Released Date/Time: May 31, 2024 08:25 AM Reporting Lab: [facility] [place] [facility] [address] [facility] [address] Performing Lab: [facility] [place] [facility] [address] [facility] [address] [facility] [place] [facility] LIVER FUNCTION PROTEIN [MASS/VOLUM E] IN SERUM OR PLASMA 7.8 g/dL 6.0 - 8.3 06/07 Specimen Type: SERUM No comment entered. Ordering Provider: SANDRA CALI Report Released Date/Time: May 31, 2024 08:25 AM Reporting Lab: [facility] [place] [facility] [address] [facility] [address] Performing Lab: [facility] [place] [facility] [address] [facility] [address] [facility] [place] [facility] LIVER FUNCTION ALBUMIN [MASS/VOLUM E] IN SERUM OR PLASMA 4.0 g/dL 3.5 - 5.0 06/07 Specimen Type: SERUM No comment entered. Ordering Provider: SANDRA CLAI Report Released Date/Time: May 31, 2024 08:25 AM Reporting Lab: [facility] [place] [facility] [address] [facility] [address] Performing Lab: [facility] [place] [facility] [address] [facility] [address] [facility] [place] [facility] LIVER FUNCTION ALKALINE PHOSPHATASE [ENZYMATIC ACTIVITY/VO LUME] IN SERUM OR PLASMA 62 U/L 40 - 150 06/07 Specimen Type: SERUM No comment entered. Ordering Provider: SANDRA CALI Report Released Date/Time: May 31, 2024 08:25 AM Reporting Lab: [facility] [place] [facility] [address] [facility] [address] Performing Lab: [facility] [place] [facility] [address] [facility] [address] [facility] [place] [facility] LIVER FUNCTION ASPARTATE AMINOTRANSF ERASE [ENZYMATIC ACTIVITY/VO LUME] IN SERUM OR PLASMA 23 U/L 5 - 34 06/07 Specimen Type: SERUM No comment entered. Ordering Provider: SANDRA CALI Report Released Date/Time: May 31, 2024 08:25 AM Reporting Lab: [facility] [place] [address] [address] Performing Lab[facility] [place] [address] [address] [facility] [place] [facility] LIVER FUNCTION ALANINE AMINOTRANSF ERASE [ENZYMATIC ACTIVITY/VO LUME] IN SERUM OR PLASMA 36 U/L 06/07 Specimen Type: SERUM No comment entered. Ordering Provider: SANDRA CALI Report Released Date/Time: May 31, 2024 08:25 AM Reporting Lab: [facility] [place] [address] [address] Performing Lab: [facility] [place] [facility] [address] [facility] [address] [facility] [place] [facility] LIVER FUNCTION BILIRUBIN.T OTAL [MASS/VOLUM E] IN SERUM OR PLASMA 0.6 mg/dL 0.2 - 1.2 06/07 Specimen Type: SERUM No comment entered. Ordering Provider: SANDRA CALI Report Released Date/Time: May 31, 2024 08:25 AM Reporting Lab: [facility] [place] [address] [address] Performing Lab: [facility] [place] [facility] [address] [facility] [address] [facility] [place] [facility] PSA PROSTATE SPECIFIC AG [MASS/VOLUM E] IN SERUM OR PLASMA 0.79 ng/mL 0.00 - 4.00 06/07 Specimen Type: SERUM No comment entered. Ordering Provider: SANDRA CALI Report Released Date/Time: May 31, 2024 08:25 AM Reporting Lab: [facility] [place] [facility] [address] [facility] [address] Performing Lab: [facility] [place] [facility] [address] [facility] [address] [facility] [place] [facility] CBC LEUKOCYTES [#/VOLUME] IN BLOOD BY AUTOMATED COUNT 5.83 10*3/u L 4.50 - 11.00 12/03 Specimen Type: BLOOD No comment entered. Ordering Provider: SANDRA CALI Report Released Date/Time: Nov 07, 2023 09:18 AM Reporting Lab: [facility] [place] [facility] [address] [facility] [address] Performing Lab: [place] [facility] [place] [facility] [address] [facility] [address] [facility] [place] [facility] CBC ERYTHROCYTE S [#/VOLUME] IN BLOOD BY AUTOMATED COUNT 5.32 10*6/u L 4.23 - 5.66 12/03 Specimen Type: BLOOD No comment entered. Ordering Provider: SANDRA CALI Report Released Date/Time: Nov 07, 2023 09:18 AM Reporting Lab: [facility] [place] [facility] [address] [facility] [address] Performing Lab: [place] [facility] [place] [facility] [address] [facility] [address] [place] [facility] [place] [facility] CBC HEMOGLOBIN [MASS/VOLUM E] IN BLOOD 15.1 g/dL 12.8 - 17 12/03 Specimen Type: BLOOD No comment entered. Ordering Provider: SANDRA CALI Report Released Date/Time: Nov 07, 2023 09:18 AM Reporting Lab: [facility] [place] [facility] [address] [facility] [address] Performing Lab: [facility] [place] [facility] [address] [facility] [address] [facility] [place] [facility] [facility] HEMATOCRIT [VOLUME FRACTION] OF BLOOD BY AUTOMATED COUNT 44.1 39.2 - 50.4 12/03 Specimen Type: BLOOD No comment entered. Ordering Provider: SANDRA CALI Report Released Date/Time: Nov 07, 2023 09:18 AM Reporting Lab: [facility] [address] [facility] [address] Performing Lab: [facility] [address] [facility] [address] [facility] CBC MCV [ENTITIC VOLUME] BY AUTOMATED COUNT 82.9 fL 82 - 99 12/03 Specimen Type: BLOOD No comment entered. Ordering Provider: SANDRA CALI Report Released Date/Time: Nov 07, 2023 09:18 AM Reporting Lab: [facility] [address] [facility] [address] Performing Lab: [facility] [facility] [address] [facility] [address] [facility] CBC MCHC [MASS/VOLUM E] BY AUTOMATED COUNT 34.2 g/dL 30.8 - 35.1 12/03 Specimen Type: BLOOD No comment entered. Ordering Provider: SANDRA CALI Report Released Date/Time: Nov 07, 2023 09:18 AM Reporting Lab: [facility] [facility] [address] [facility] [address] Performing Lab: [facility] [place] [facility] [address] [facility] [address] [facility] CBC PLATELETS [#/VOLUME] IN BLOOD BY AUTOMATED COUNT 148 10*3/u L 140 - 360 12/03 Specimen Type: BLOOD No comment entered. Ordering Provider: SANDRA CALI Report Released Date/Time: Nov 07, 2023 09:18 AM Reporting Lab: [facility] [facility] [address] [facility] [address] Performing Lab: [facility] [address] [facility] [address] [facility] CBC ERYTHROCYTE DISTRIBUTIO N WIDTH [RATIO] BY AUTOMATED COUNT 11.6 12.0 - 16.0 12/03 L Specimen Type: BLOOD No comment entered. Ordering Provider: SANDRA CALI Report Released Date/Time: Nov 07, 2023 09:18 AM Reporting Lab: [facility] [place] [facility] [address] [facility] [address] Performing Lab: [facility] [place] [facility] [address] [facility] [address] [facility] CBC MCH [ENTITIC MASS] BY AUTOMATED COUNT 28.4 pg 26.2 - 32.6 12/03 Specimen Type: BLOOD No comment entered. Ordering Provider: SANDRA CALI Report Released Date/Time: Nov 07, 2023 09:18 AM Reporting Lab: [facility] [place] [facility] [address] [facility] [address] Performing Lab: [facility] [place] [facility] [address] [facility] [address] [facility] BASIC METABOLIC PANEL (non-fast ing) UREA NITROGEN [MASS/VOLUM E] IN SERUM OR PLASMA 14 mg/dL 12/03 Specimen Type: SERUM Comment: Hemolysis present analysis cannot be performed. Hemolysis present may falsly elevate Potassium Total and Direct Bili, Iron, AST, %Fe. Ordering Provider: SANDRA CALI Report Released Date/Time: Nov 07, 2023 09:18 AM Reporting Lab: [facility] [place] [facility] [address] [facility] [address] Performing Lab: [facility] [place] [facility] [address] [facility] [address] [facility] BASIC METABOLIC PANEL (non-fast ing) GLUCOSE [MASS/VOLUM E] IN SERUM OR PLASMA 103 mg/dL 65 - 100 12/03 H Specimen Type: SERUM Comment: Hemolysis present analysis cannot be performed. Hemolysis present may falsly elevate Potassium Total and Direct Bili, Iron, AST, %Fe. Ordering Provider: SANDRA CALI Report Released Date/Time: Nov 07, 2023 09:18 AM Reporting Lab: [address] [address] Performing Lab: [address] [address] [facility] BASIC METABOLIC PANEL (non-fast ing) SODIUM [MOLES/VOLU ME] IN SERUM OR PLASMA 137 mmol/L 135 - 145 12/03 Specimen Type: SERUM Comment: Hemolysis present analysis cannot be performed. Hemolysis present may falsly elevate Potassium Total and Direct Bili, Iron, AST, %Fe. Ordering Provider: SANDRA CALI Report Released Date/Time: Nov 07, 2023 09:18 AM Reporting Lab: [address] [address] Performing Lab: [address] [address] [facility] BASIC METABOLIC PANEL (non-fast ing) POTASSIUM [MOLES/VOLU ME] IN SERUM OR PLASMA 4.4 mmol/L 3.5 - 5.0 12/03 Specimen Type: SERUM Comment: Hemolysis present analysis cannot be performed. Hemolysis present may falsly elevate Potassium Total and Direct Bili, Iron, AST, %Fe. Ordering Provider: SANDRA CALI Report Released Date/Time: Nov 07, 2023 09:18 AM Reporting Lab: [address] [address] Performing Lab: [address] [address] [facility] BASIC METABOLIC PANEL (non-fast ing) CHLORIDE [MOLES/VOLU ME] IN SERUM OR PLASMA 107 mmol/L 100 - 110 12/03 Specimen Type: SERUM Comment: Hemolysis present analysis cannot be performed. Hemolysis present may falsly elevate Potassium Total and Direct Bili, Iron, AST, %Fe. Ordering Provider: SANDRA CALI Report Released Date/Time: Nov 07, 2023 09:18 AM Reporting Lab: [address] [address] Performing Lab: [address] [address] [facility] BASIC METABOLIC PANEL (non-fast ing) CARBON DIOXIDE, TOTAL [MOLES/VOLU ME] IN SERUM OR PLASMA 20 meq/L 20 - 30 12/03 Specimen Type: SERUM Comment: Hemolysis present analysis cannot be performed. Hemolysis present may falsly elevate Potassium Total and Direct Bili, Iron, AST, %Fe. Ordering Provider: SANDRA CALI Report Released Date/Time: Nov 07, 2023 09:18 AM Reporting Lab: [address] [address] Performing Lab: [address] [address] [facility] BASIC METABOLIC PANEL (non-fast ing) CREATININE [MASS/VOLUM E] IN SERUM OR PLASMA 1.04 mg/dL 0.50 - 1.40 12/03 Specimen Type: SERUM Comment: Hemolysis present analysis cannot be performed. Hemolysis present may falsly elevate Potassium Total and Direct Bili, Iron, AST, %Fe. Ordering Provider: SANDRA CALI Report Released Date/Time: Nov 07, 2023 09:18 AM Reporting Lab: [address] [address] Performing Lab: [address] [address] [facility] BASIC METABOLIC PANEL (non-fast ing) GLOMERULAR FILTRATION RATE/1.73 SQ M.PREDICTED [VOLUME RATE/AREA] IN SERUM, PLASMA OR BLOOD BY CREATININE- BASED FORMULA (CKD-EPI 2020) 82 mL/min 60 12/03 Specimen Type: SERUM Comment: Hemolysis present analysis cannot be performed. Hemolysis present may falsly elevate Potassium Total and Direct Bili, Iron, AST, %Fe. Ordering Provider: SANDRA CALI Report Released Date/Time: Nov 07, 2023 09:18 AM Reporting Lab: [facility] [address] [facility] [address] Performing Lab: [address] [address] [facility] LIPID PANEL, NON FASTING CHOLESTEROL [MASS/VOLUM E] IN SERUM OR PLASMA 183 mg/dL 12/03 Specimen Type: SERUM Comment: Hemolysis present analysis cannot be performed. Hemolysis present may falsly elevate Potassium Total and Direct Bili, Iron, AST, %Fe. Ordering Provider: SANDRA CALI Report Released Date/Time: Nov 07, 2023 09:18 AM Reporting Lab: [facility] [address] [facility] [address] Performing Lab: [facility] [address] [facility] [address] [facility] LIPID PANEL, NON FASTING TRIGLYCERID E [MASS/VOLUM E] IN SERUM OR PLASMA 97 mg/dL 0 - 150 12/03 Specimen Type: SERUM Comment: Hemolysis present analysis cannot be performed. Hemolysis present may falsly elevate Potassium Total and Direct Bili, Iron, AST, %Fe. Ordering Provider: SANDRA CALI Report Released Date/Time: Nov 07, 2023 09:18 AM Reporting Lab: [facility] [address] [facility] [address] Performing Lab: [address] [address] [facility] LIPID PANEL, NON FASTING CHOLESTEROL IN LDL [MASS/VOLUM E] IN SERUM OR PLASMA BY CALCULATION 119 mg/dL 0 - 129 12/03 Specimen Type: SERUM Comment: Hemolysis present analysis cannot be performed. Hemolysis present may falsly elevate Potassium Total and Direct Bili, Iron, AST, %Fe. Ordering Provider: SANDRA CALI Report Released Date/Time: Nov 07, 2023 09:18 AM Reporting Lab: [facility] [address] [facility] [address] Performing Lab: [facility] [address] [facility] [address] [facility] LIPID PANEL, NON FASTING CHOLESTEROL .TOTAL/CHOL ESTEROL IN HDL [MASS RATIO] IN SERUM OR PLASMA 4.1 12/03 Specimen Type: SERUM Comment: Hemolysis present analysis cannot be performed. Hemolysis present may falsly elevate Potassium Total and Direct Bili, Iron, AST, %Fe. Ordering Provider: SANDRA CALI Report Released Date/Time: Nov 07, 2023 09:18 AM Reporting Lab: [address] [address] Performing Lab: [facility] [address] [facility] [address] [facility] LIPID PANEL, NON FASTING CHOLESTEROL IN HDL [MASS/VOLUM E] IN SERUM OR PLASMA 45 mg/dL 40 - 60 12/03 Specimen Type: SERUM Comment: Hemolysis present analysis cannot be performed. Hemolysis present may falsly elevate Potassium Total and Direct Bili, Iron, AST, %Fe. Ordering Provider: SANDRA CALI Report Released Date/Time: Nov 07, 2023 09:18 AM Reporting Lab: [address] [address] Performing Lab: [address] [address] [facility] LIVER FUNCTION PROTEIN [MASS/VOLUM E] IN SERUM OR PLASMA 7.0 g/dL 6.0 - 8.3 12/03 Specimen Type: SERUM Comment: Hemolysis present analysis cannot be performed. Hemolysis present may falsly elevate Potassium Total and Direct Bili, Iron, AST, %Fe. Ordering Provider: SANDRA CALI Report Released Date/Time: Nov 07, 2023 09:18 AM Reporting Lab: [address] [address] Performing Lab: [address] [address] [facility] LIVER FUNCTION ALBUMIN [MASS/VOLUM E] IN SERUM OR PLASMA 3.8 g/dL 3.5 - 5.0 12/03 Specimen Type: SERUM Comment: Hemolysis present analysis cannot be performed. Hemolysis present may falsly elevate Potassium Total and Direct Bili, Iron, AST, %Fe. Ordering Provider: SANDRA CALI Report Released Date/Time: Nov 07, 2023 09:18 AM Reporting Lab: [address] [address] Performing Lab: [address] [address] [facility] LIVER FUNCTION ALKALINE PHOSPHATASE [ENZYMATIC ACTIVITY/VO LUME] IN SERUM OR PLASMA 56 U/L 40 - 150 12/03 Specimen Type: SERUM Comment: Hemolysis present analysis cannot be performed. Hemolysis present may falsly elevate Potassium Total and Direct Bili, Iron, AST, %Fe. Ordering Provider: SANDRA CALI Report Released Date/Time: Nov 07, 2023 09:18 AM Reporting Lab: [address] [address] Performing Lab: [address] [address] [facility] LIVER FUNCTION ASPARTATE AMINOTRANSF ERASE [ENZYMATIC ACTIVITY/VO LUME] IN SERUM OR PLASMA 19 U/L 5 - 34 12/03 Specimen Type: SERUM Comment: Hemolysis present analysis cannot be performed. Hemolysis present may falsly elevate Potassium Total and Direct Bili, Iron, AST, %Fe. Ordering Provider: SANDRA CALI Report Released Date/Time: Nov 07, 2023 09:18 AM Reporting Lab: [facility] [place] [facility] [address] [facility] [address] Performing Lab: [facility] [place] [address] [address] [facility] LIVER FUNCTION ALANINE AMINOTRANSF ERASE [ENZYMATIC ACTIVITY/VO LUME] IN SERUM OR PLASMA 19 U/L 12/03 Specimen Type: SERUM Comment: Hemolysis present analysis cannot be performed. Hemolysis present may falsly elevate Potassium Total and Direct Bili, Iron, AST, %Fe. Ordering Provider: SANDRA CALI Report Released Date/Time: Nov 07, 2023 09:18 AM Reporting Lab: [facility] [place] [address] [address] Performing Lab: [facility] [address] [address] [facility] LIVER FUNCTION BILIRUBIN.T OTAL [MASS/VOLUM E] IN SERUM OR PLASMA commen tmg/dL 0.2 - 1.2 12/03 Specimen Type: SERUM Comment: Hemolysis present analysis cannot be performed. Hemolysis present may falsly elevate Potassium Total and Direct Bili, Iron, AST, %Fe. Ordering Provider: SANDRA CALI Report Released Date/Time: Nov 07, 2023 09:18 AM Reporting Lab: [facility] [address] Performing Lab: [facility] [place] [address] [address] [facility] PSA PROSTATE SPECIFIC AG [MASS/VOLUM E] IN SERUM OR PLASMA 0.56 ng/mL 0.00 - 4.00 12/03 Specimen Type: SERUM No comment entered. Ordering Provider: SANDRA CALI Report Released Date/Time: Nov 07, 2023 09:18 AM Reporting Lab: [facility] [address] Performing Lab: [facility] [place] [address] [place] [address] [facility] Vital Signs Combined list of inpatient and outpatient Vital Signs from Department of Defense and Veterans Affairs, ranging from 12 months to all on record, depending upon the facility. Vital Sign Value Date Comments Source SYSTOLIC BLOOD PRESSURE 140 06/07/19 25 08:26:37 [facility] DIASTOLIC BLOOD PRESSURE 82 025 08:26:37 [facility] PULSE OXIMETRY 98 06/07/2024 08:26:37 [facility] WEIGHT 217 06/07/2024 08:26:37 [facility] BMI 34 kg/m2 06/07/2024 08:26:37 [facility] PAIN 0 06/07/2024 08:26:37 [facility] TEMPERATURE 98.7 06/07/2024 08:26:37 [facility] PULSE 88 06/07/2024 08:26:37 [facility] RESPIRATION 16 06/07/2024 08:26:37 [facility] SYSTOLIC BLOOD PRESSURE 137 12/07/19 24 08:09:21 [facility] DIASTOLIC BLOOD PRESSURE 84 024 08:09:21 [facility] PULSE OXIMETRY 97 12/07/2023 08:09:21 [facility] WEIGHT 216 12/07/2023 08:09:21 [facility] BMI 34 kg/m2 12/07/2023 08:09:21 [facility] PAIN 4 12/07/2023 08:09:21 [facility] HEIGHT 67 12/07/2023 08:09:21 [facility] TEMPERATURE 98.1 12/07/2023 08:09:21 [facility] PULSE 70 12/07/2023 08:09:21 [facility] RESPIRATION 20 12/07/2023 08:09:21 [facility] SYSTOLIC BLOOD PRESSURE 136 07/11/19 24 08:08:18 [facility] DIASTOLIC BLOOD PRESSURE 78 024 08:08:18 [facility] PAIN 2 07/11/2023 08:08:18 [facility] TEMPERATURE 98.2 07/11/2023 08:08:18 [facility] PULSE 65 07/11/2023 08:08:18 [facility] RESPIRATION 16 07/11/2023 08:08:18 [facility] Encounters Combined list of: 1) Encounters from Department of Veterans Affairs facilities going backup to the last 18 months, not all [place] inpatient encounters are included; 2) Encounters from the Department of [employer] facilities going backup to 280 months. Location Location Details Encounter Type Encounter Number Reason For Visit Attending Provider ADM Date DC Date Status Disposition Source [facility] OFFICE O/P NEW SF 15-29 MIN [id number] Diagnos is: ICD-10- CM J45.909 Unspeci fied asthma, uncompl icated Verónica CALI J 01/03 [facility] [facility] PSYTX W PT W E/M 60 MIN [id number] Diagnos is: ICD-10- CM F43.12 Post-tr aumatic stress disorde r, chronic Aissatou RICH 01/10 [facility] Outpatient Encounter [id number] 01/19 [facility] [place] [place] DETERMINE REFRACTIVE STATE [id number] Diagnos is: ICD-10- CM H52.03 Hyperme laura, lydia al CAMILA EVANS 01/23 [facility] Out[facility] Encounter [id number] 01/23 [facility] FIT SPECTACLES MULTIFOCAL [id number] Diagnos is: ICD-10- CM Z46.0 Encount er for fit/adj st of spectac les and contact lenses MARITO JOLLY 01/23 [facility] Out[facility] Encounter [id number] 02/28 [facility] BRIEF ASSESSMENT [id number] Diagnos is: ICD-10- CM K08.9 Disorde r of teeth and support ing structu res, unspeci SANDRA Campbell 03/01 [facility] Out[facility] Encounter [id number] 03/23 [facility] OFFICE O/P EST HI 40-54 MIN [id number] Diagnos is: ICD-10- CM F43.12 Post-tr aumatic stress disorde r, Melina Dang 03/31 [facility] Out[facility] Encounter [id number] 04/13 [facility] PSYTX W PT 60 MINUTES [id number] Diagnos is: ICD-10- CM F43.12 Post-tr aumatic stress disorde r, chronic Laura HIGGINBOTHAM M 04/14 [facility] PSYTX W PT 30 MINUTES [id number] Diagnos is: ICD-10- CM F43.12 Post-tr aumatic stress disorde r, chronic Laura HIGGINBOTHAM M 04/21 [facility] OFFICE O/P EST MOD 30 MIN [id number] Diagnos is: ICD-10- CM F43.12 Post-tr aumatic stress disorde r, chronic Melina CHIANG CLARI 05/01 [facility] OFFICE O/P EST MOD 30 MIN [id number] Diagnos is: ICD-10- CM M25.561 Pain in right knee Verónica CALI 05/05 [facility] Outpatient Encounter [id number] 05/07 [facility] EVALUATION OF [place] [id number] Diagnos is: ICD-10- CM J45.909 Unspeci fied asthma, uncompl icated JARMOLOWIC Z,TERESO 05/08 [facility] Out[facility] Encounter [id number] 05/10 [facility] Outpatient Encounter [id number] 05/11 [facility] [place] [place] EVALUATION [place] [id number] Diagnos is: ICD-10- CM J45.998 Other asthma Arnaud COBOS MD 05/19 [facility] Outpatient Encounter [id number] 06/28 [facility] OFF/OP EST MAY X REQ PHY/QHP [id number] Diagnos is: ICD-10- CM Z71.89 Other specifi ed preparole counseling aide WENDY Gonzáles 07/10 [facility] OFFICE O/P EST LOW 20 MIN [id number] Diagnos is: ICD-10- CM H10.32 Unspeci fied acute conjunc tivitis , left eye GENIE PEREZ 07/10 [facility] INTRM OPH EXAM EST PATIENT [id number] Diagnos is: ICD-10- CM 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, left eye OSMAN,LACE Y J 07/10 [facility] INTRM OPH EXAM EST PATIENT [id number] Diagnos is: ICD-10- CM 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, left eye OSMAN,LACE Y J 07/11 [facility] Outpatient Encounter [id number] 07/11 [facility] Outpatient Encounter [id number] 07/11 [facility] INTRM OPH EXAM EST PATIENT [id number] Diagnos is: ICD-10- CM 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, left eye MERHAR,ANASTACIO H B 07/12 [facility] INTRM OPH EXAM EST PATIENT [id number] Diagnos is: ICD-10- CM 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, left eye OSMAN,LACE Y J 07/13 [facility] INTRM OPH EXAM EST PATIENT [id number] Diagnos is: ICD-10- CM 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, left eye JA,VT PATT 07/16 [facility] Out[facility] Encounter [id number] 07/16 [facility] Out[facility] Encounter [id number] 07/17 [facility] INTRM OPH EXAM NEW PATIENT [id number] Diagnos is: ICD-10- CM H20.12 Chronic iridocy clitis, left eye JA,VT PATT 07/24 [facility] INTRM OPH EXAM EST PATIENT [id number] Diagnos is: ICD-10- CM H20.12 Chronic iridocy clitis, left eye JA,VT PATT 08/21 [facility] Outpatient [facility]counter [id number] 08/24 [facility] Out[facility] Encounter [id number] 08/27 [facility] INTRM OPH EXAM EST PATIENT [id number] Diagnos is: ICD-10- CM 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, left eye MERHAR,ANASTACIO H B 08/29 [facility] CMPTR OPHTH IMG OPTIC NERVE [id number] Diagnos is: ICD-10- CM 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 ine finding s, low risk, bilater al MERHAR,ANASTACIO H B 08/29 [facility] INTRM OPH EXAM EST PATIENT [id number] Diagnos is: ICD-10- CM H20.12 Chronic iridocy clitis, left eye WYATT PERES PATT 09/13 [facility] FIT SPECTACLES MONOFOCAL [id number] Diagnos is: ICD-10- CM Z46.0 Encount er for fit/adj st of spectac les and contact lenses WYATT PERES PATT 09/13 [facility] En[facility] [id number] 09/17 [facility] [id number] 09/17 [facility] En[facility] [id number] 09/25 [facility] [id number] WENDY SHULTZ 10/22 [facility] En[facility] [id number] WENDY SHULTZ 10/25 [facility] ([id number]) QNHP OL DIG ASSMT&MGMT 5-10 [id number] Diagnos is: ICD-10- CM Z04.89 Encount er for examina tion and observa tion for oth reasons RAYMUNDO SHARP 10/26 [facility] (6[facility]) [facility] Out[facility] Encounter [id number] WENDY SHULTZ 10/29 [facility] Outpatient Encounter [id number] WENDY SHULTZ 11/05 [facility] Out[facility] Encounter [id number] 11/06 [facility] Out[facility] Encounter [id number] 11/08 [facility] Out[facility] Encounter [id number] 11/30 [facility] OFFICE O/P EST MOD 30 MIN [id number] Diagnos is: ICD-10- CM M25.561 Pain in right knee Verónica CALI 12/06 [facility] Outpatient Encounter [id number] 12/31 [facility] Out[facility] Encounter [id number] 01/04 [facility] Out[facility] Encounter [id number] 01/11 [facility] Out[facility] Encounter [id number] [facility] Out[facility] Encounter [id number] 03/12 [facility] Out[facility] Encounter [id number] 03/28 [facility] OFFICE O/P EST MOD 30 MIN [id number] Diagnos is: ICD-10- CM H25.13 Age-rel ated nuclear catarac t, bilater al WYATT PERES 04/30 [facility] FIT SPECTACLES MULTIFOCAL [id number] Diagnos is: ICD-10- CM Z46.0 Encount er for fit/adj st of spectac les and contact lenses WYATT PERES 04/30 [facility] NQHP OL DIG ASSMT&MGMT 5-10 [id number] Diagnos is: ICD-10- CM 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 , left eye Fidencio GIBSON 05/02 [facility] [place] Outpatient Encounter [id number] 06/07 [facility] [place] [facility] OFFICE O/P EST HI 40 MIN [id number] Diagnos is: ICD-10- CM M25.561 Pain in right knee Verónica CALI 06/07 [facility] [place] [place] [facility] Social History Combined list of available smoking, tobacco, and other social history from Department of Defense and Veterans Affairs facilities. Social History Type Response Date Comment Sourc e Tobacco smoking status NHIS WA-TOBACCO NEVER USED 12/07/2023 [facility] [place] [facility] History of tobacco use WA-TOBACCO NEVER USED 01/03/2023 [facility] [place] [facility] Plan of Care List of future care activities from Department of Veterans Affairs facilities. Additional future care activities may be listed in the Assessment and Plan section. Date/Time Care Activity Care Activity Detail Facili ty 12/06/2024 AMBULATORY - MEDICINE AMBULATORY - MEDICI NE [facility] [place] [facility] 06/07/2024 Consult Order [facility] Cons Marketing Editor's Choice [facility] [place] [facility]
--- OUTSIDE RECORDS SUMMARY | 2024-06-13 10:23 | XMS_ITS ---
Author Organization [facility] Address [address] [place] [address] Care Team Providers Care Drilling Plant Operator Name Role Phone Jensen HERRERA, Lang Primary Care Provider UnaFlash Medina [facility] [phone] REASON FOR VISIT bowel prep Medications Medication SIG (Take, Route, Frequency, Duration) Notes Start Date End Date Status MiraLax (colon prep) 17 GM/SCOOP 1 238Gm bottle mixed with Gatorade or Crystal Light Orally begin at 5:00 p.m. the day before the procedure for 1 day 03/16/2024 Active Dulcolax (colon prep) 5 MG take at 3:00 p.m and 7:00p.m. Orally two tablets twice a day for one day for 1 day 03/16/2024 Active Encounters Encounter Location Date Provider Diagnosis [facility] [address] [address] 03/12/2024 Flash Herrera Plan Of Treatment Medication Medication Name Sig Start Date Stop Date Notes MiraLax (colon prep) 17 GM/SCOOP 1 238Gm bottle mixed with Gatorade or Crystal Light Orally begin at 5:00 p.m. the day before the procedure for 1 day 03/16/2024 Dulcolax (colon prep) 5 MG take at 3:00 p.m and 7:00p.m. Orally two tablets twice a day for one day for 1 day 03/16/2024 Next Appt Details Provider Name:Flash Herrera , 07/01/2024 08:40:00 AM, [address] [place] [address] , [place], [place], [phone], Progress Notes * LA MAURICIOOB:1960 (63 yo M)Acc No.[id number]:03/12/2024 Patient:ARVIN BURNS :1960???Age:63 Y???Sex:Male Address:[address] [place] [address], [place] [address] * Refills? Start MiraLax (colon prep) Powder, 17 GM/SCOOP, Orally, 1, 1 238Gm bottle mixed with Gatorade or Crystal Light, begin at 5:00 p.m. the day before the procedure, 1 day, Refills=0 Start Dulcolax (colon prep) Tablet Delayed Release, 5 MG, Orally, 4, take at 3:00 p.m and 7:00p.m., two tablets twice a day for one day, 1 day, Refills=0 * true * Date:? Generated for Argenis bishop/Preston/Carolsmitting on:?06/13/2024 10:22 AM EST
--- OUTSIDE RECORDS SUMMARY | 2024-06-13 10:23 | XMS_ITS | Patient Health Record ---
Author Organization [facility] Address [address] [place] [address] Care Team Providers Care Command Center Officer Name Role Phone Lang Styles NP Primary Care Provider UnaFlash [place] Unavailable [phone] Allergies No Known Allergies Reason For Referral Referring Provider First Name Lang Referring Provider Last Name Jensen Referred Organization [facility] Referred Provider Flash eHrrera Referred Address [address] [facility],[place], [place],[address], Referred Provider Specialty Gastroentero logy Referral Priority Routine Medications Medication SIG (Take, Route, Frequency, Duration) [...] one day for 1 day 03/16/2024 Active buPROPion HCl ER (XL) 300 MG Oral for 90 Active LORazepam 0.5 MG Oral for 30 3 pills at night Active Aleve as needed Not-Taking Symbicort 160-4.5 MCG/ACT 2 puffs Inhalation Twice a day Not-Taking Lialda 1.2 GM 4 Orally Take all 4 together once everyday for 90 days 11/06/2023 Active Asacol HD 800 MG 3 tablets Orally twice a day He takes this extremely rarely when he thinks he might be having some colitis symptoms, but only takes it for one or 2 days Not-Taking Mesalamine 400 MG 3 Orally Twice a day for 90 days 08/23/2022 Not-Taking Immunizations Vaccine Route Administration Date Status Comme nts Influenza Unknown 05/10/2023 Refused Social History Alcohol Screen Question Answer Notes [...] Negative Section Notes: Nonsmoker; no sig alcohol Nonsmoker; no sig alcohol Nonsmoker; no sig alcohol Nonsmoker; no sig alcohol Problems Problem Type SNOMED Code ICD Code Onset Dates Problem Status W/U Status Risk Notes Problem 744610276 Encounter for screening for malignant neoplasm of colon (Z12.11) Active confirmed Problem Screening for malignant neoplasm of rectum (631133338) Encounter for screening for malignant neoplasm of rectum (Z12.12) Active confirmed Problem 65904049 Ulcerative colitis without complications, unspecified location (K51.90) Active confirmed Problem Ulcerative colitis (45431596) Ulcerative colitis (K51.90) Active confirmed Problem Diverticulosis of colon (274477446) Diverticulosis of colon (K57.30) Active confirmed Vital Signs Blood pressure diastolic 00 mm Hg 03/12/2024 Height 66.5 in 03/12/2024 Blood pressure systolic 00 mm Hg 03/12/2024 Weight 220 lbs 03/12/2024 BMI 34.97 kg/m2 03/12/2024 Encounters Encounter Location Date Provider Diagnosis [facility] [address] [place] [address] 03/12/2024 Flash Herrera Ulcerative colitis without complications, unspecified location K51.90 ; Encounter for screening for malignant neoplasm of colon Z12.11 and Family history of colorectal cancer Z80.0 [facility] [address] [place] [address] 10/30/2023 Flash Herrera [facility] [address] [place] [address] 10/31/2023 Flash Herrera [facility] [address] [place] [address] 11/05/2023 Flash Herrera [facility] [address] [place] [address] 03/12/2024 Flash Herrera [facility] [address] [place] [address] 03/14/2024 Flash Herrera Assessments Encounter Date Diagnosis (ICD Code) Assessment Notes Treatment Notes Treatment Clinical Notes Section Notes 03/12/2024 Encounter for screening for malignant neoplasm [...] keep you advised of his progress. 03/12/2024 Ulcerative colitis without complications, unspecified location [...] Future Test Test Name Order Date COLONOSCOPY 07/26/2016 COLONOSCOPY 05/04/2021 COLONOSCOPY 03/12/2024 Next Appt Details Provider Name:Flash Herrera , 07/01/2024 08:40:00 AM, [address] [place] [address] , [place], [place], [phone], Insurance Providers Payer Name Payer Address Payer Phone Subscriber Number Group Number Insured Name Patient Relationship to Insured Coverage Start Date Coverage End Date [facility] [employer] [address] [place] [address] [id number] ARVIN MAURICIO Self - patient is the insured Medical (General) History Medical History History ICD Code Denies NE,DM,CVA,renal disease Ulcerative colitis--dx'd [place] [address] Loree Foreman at [facility] Hx of headaches Colonoscopy in September of 2016 revealed some minimal areas of colitis in the cecum, and some inactive-appearing areas of colitis in the ascending and transverse colon. Biopsies throughout the colon were negative for dysplasia and there were no polyps. PTSD and difficulty sleeping for which he is currently seeing a psychiatrist-he does use occasional CBD gummies Colonoscopy in 05/2021--very minimal changes of colitis in the area of the cecum, but the remainder the colon and terminal ileum were normal. Biopsies throughout the colon were negative for dysplasia. There were no polyps. Surgical History Surgery Date(Month/Year) right knee 2005 right elbow 2014 left shoulder 2014
--- OUTSIDE RECORDS SUMMARY | 2024-06-13 10:23 | XMS_ITS ---
Author Name [facility] [place] [facility] [place] Address [address] [place] [address] Care Team Providers Care Clothes Separator Name Role Phone VERA CALI Primary Care [...] Relationship to Policy Kern [facility]EM[facility] PRESCRIPT [facility] Oct 08, 2017 [id number] DARÍO SANDERS PATIENT [facility] POINT OF SERVICE MA POS EXPLO RER* Oct 09, 2023 MA POS EXPLORE R* [id number] [phone] DARÍO SANDERS PATIENT [facility] POINT OF SERVICE MA POS EXPLO RER Oct 08, 2022 [id number] WYATT SANDERS SPOUSE [facility] POINT OF SERVICE MA POS Oct 08, 2022 [id number] DARÍO SANDERS PATIENT [facility] [address] PILGR IM* Oct 09, 2023 NONE [id number] DARÍO SANDERS PATIENT [facility] Oct 08, 2022 NONE [id number] DARÍO SANDERS PATIENT [facility] ION [address] PILGR IM Oct 08, 2022 NONE [id number] [phone] WYATT SANDERS SPOUSE [facility] POINT OF SERVICE [facility] BY [facility] Oct 08, 2017 [id number] DARÍO SANDERS PATIENT Selected Encounter This section includes the information on record at [place] for the Encounter. Date/Time Encounter Type Encounter Description Reason Provider Source Apr 30, 2024 07:30 AM OFFICE O/P EST MOD 30 MIN OPTOMETRY ICD-10-CM H25.13 Age-related nuclear cataract, bilateral RAMONA PERES Encounter Template Text not used by [place] Assessments - Encounter Diagnoses This section includes the primary and secondary diagnoses documented for the Encounter. Date/Time Primary/Secondary Diagnosis Diagnosis Name Provider Source May 20, 2024 08:09 AM PRIMARY Age-related nuclear cataract, bilateral JALUIZE ALBERTO [facility] [place] [facility] May 20, 2024 08:09 AM SECONDARY Chronic iridocyclitis, left eye JALUIZE [facility] [place] [facility] May 20, 2024 08:09 AM SECONDARY Open angle with borderline findings, low risk, bilateral AVA PERES [facility] [place] [facility] May 20, 2024 08:09 AM SECONDARY Ulcerative colitis, unspecified, without complications JAAVA ANGELO [facility] [place] [facility] Plan of Treatment: Future Appointments (+ 6 months) and Future Tests (+/- 45 days) The Plan of Treatment section includes future care activities for the patient from all [place] treatmentfacilities. This section includes future appointments and future orders which are active, pending or scheduled. Future Appointments This section includes appointments that were scheduled to occur 6 months from the date of the Encounter, up to a maximum of 20 appointments. The data comes from all [place] treatment facilities. Appointment Date/Time Appointment Type Appointme nt Facility Name Jun 07, 2024 08:30 AM AMBULATORY - MEDICINE [place] [facility] [place] [facility] Active, Pending, and Scheduled Orders This section includes a listing of several types of active, pending, and scheduled orders, including clinic medications orders, diagnostic test orders, procedure orders and consult orders; where the start date of the order is 45 days before the date of the Encounter or 45 days after the date of theEncounter. The data comes from all [place] treatment facilities. Test Date/Time Test Type Test Details Facility Name Jun 07, 2024 08:44 AM Consult Order [facility] Cons Health Care Legal Assistant's Choice [facility] Social History: Smoking Status (Most current) and Tobacco Use (All prior to encounter date) This section includes the most current, and the historical, smoking and tobacco- related health factors from the [place] facility where the Encounter took place. Current Smoking Status This section includes the most current smoking, or tobacco-related health factor, from the [place] facility where the Encounter took place. Date/Time Current Smoking Status Comment Alanna young Dec 07, 2023 08:30 AM CO-TOBACCO NEVER USED [facility] Tobacco Use History This section includes a history of the smoking, or tobacco-related health factors, that were collected on or before the date of the Encounter. The data comes from the [place] facility where the Encounter took place. Date/Time Smoking Status/Tobacco Use Comment F fred Jan 03, 2023 09:00 AM VA-TOBACCO NEVER USED [facility] Encounter Notes: All associated encounter notes This section contains the clinical notes associated to the Encounter. Date/Time Encounter Note(s) Provider Source Apr 30, 2024 07:28 AM OPTOMETRY NOTE: LOCAL TITLE: OPTOMETRY NOTE STANDARD TITLE: OPTOMETRY NOTE DATE OF NOTE: APR 30, 2024@07:28 ENTRY DATE: APR 30, 2024@07:29 AUTHOR: NADIR PERES EXP COSIGNER: URGENCY: STATUS: COMPLETED OPTOMETRY NOTE Has ADDENDA Active problems - Computerized Problem List is the source for the followin. Exposure to potentially hazardous substance 2. Right knee pain 3. Asthma ([facility] [id number]) 4. Chronic Post-Traumatic Stress Disorder ([facility] [id number]) 5. Ulcerative colitis Active Outpatient Medications (including Supplies): Active Outpatient Medications Status 1) MELOXICAM 15MG TAB TAKE ONE TABLET BY MOUTH ONCE DAILY ACTIVE 2) MESALAMINE 1200MG EC TAB TAKE FOUR TABLETS BY MOUTH ONCE ACTIVE (S) DAILY Active Non-VA Medications Status 1) Non-VA BUDESONIDE/FORMOTEROL INHL,ORAL BY MOUTH ACTIVE Indication: FOR ASTHMA 2) Non-VA BUPROPION HCL 300MG 24HR SA TAB 300MG BY MOUTH ONCE ACTIVE DAILY Indication: FOR DEPRESSION 3) Non-VA LORAZEPAM 0.5MG TAB 0.5MG BY MOUTH THREE TIMES DAILY ACTIVE NEEDED Indication: FOR ANXIETY 4) Non-VA MARIJUANA MISCELLANEOUS GUMMIES DIRECTED AT ACTIVE BEDTIME 5) Non-VA MESALAMINE 400MG EC CAP 400MG BY MOUTH ONCE DAILY ACTIVE Indication: FOR ULCERATIVE COLITIS 7 Total Medications Allergies: Patient has answered NKA All medications including those prescribed by outside VA's, community providers, and all OTC meds were reviewed and reconciled with patient to the best of their abilities. This 63 year old MALE is seen today for comprehensive eye examination. Medical, eye, personal, and social history are all reviewed and is contributory to today's visit for early bilateral cataracts, bilateral low risk glaucoma suspect as well as history. He experienced a severe episode of nongranulomatous anterior uveitis left eye which began in July 13, 2023. He was slowly tapered off topical steroids over the course of 9 weeks left eye. He reports monthly episodes of left eye redness with retro-orbital pain which is worse with eye movement which responds well to self prescribed use of Pred forte several times a day for 2 to 3 days. He reports 6 episodes since he tapered off topical steroids early September 2023. Chief Complaint: Monthly episodes of rebound eye pain and redness left eye which responds well to self prescribed use of Pred forte. (-) Pain: (-) GUY: (-) Diplopia: (-) Flashes: (-) Floaters: (-) Amaurosis Fugax/Tia's: (-) Eye Injury: (-) Eye Surgery: (-) TBI: Family ocular history: (-) Blindness, glaucoma or macular degeneration Vision: With 20/20 right eye 20/20 left eye Without Correction Pupils, EOMS, confrontation cadet are all done and show round somewhat miotic minimally reactive pupils without afferent pupillary defect and with full extraocular motility and full confrontation cadet to finger counting each eye Current Wear: OD: +0.75 -0.75 axis 010 OS: [place] -0.50 Martin 180 +1.75 add Refraction: OD: +0.75 -0.75 axis 010 20/20 OS: [place] -0.50 Martin 180 20/20 +2.00 add 20/20 Tonometry: 11, 12 OD 12, 12 OS Time: 7:19 AM dilated with tropicamide 1% in each eye after dilation morning given and verbal consent obtained PreTreatment IOP: OD OS Pachymetry: Previously measured 532 ??m right eye 527 ??m left eye Thinner than average left thinner than right eye Anterior segment: Lids: Mild dramatic chalasis with ptosis left greater than right upper lid Conj: White and quiet with pinguecula nasally each eye Cornea: Clear centrally without staining or keratic precipitate each eye AC: Deep and quiet right eye trace cells left eye Iris: Normal each eye no transillumination defects Lens:1 nuclear sclerosis with pigment anterior lens capsule left eye consistent with previous broken synechia no pseudoexfoliation HI Vit: Clear each eye Fundus exam: Dilated: xxx Non dilated: C/D: Larger disc size 0.65 cup-to-disc ratio with good color and intact rim tissue each eye no splinter hemorrhages or notching Macula: Normal each eye A/V: 1/2 each eye Vessels: 1/2 each eye Periphery: No obvious holes, tears, detachments in each eye Impression: Early bilateral nuclear sclerotic cataracts not visually significant at present with evidence of pigment anterior lens capsule left eye consistent with history of previous broken posterior synechia from nongranulomatous anterior uveitis. Bilateral low risk glaucoma suspect with somewhat larger disc size with moderately large but healthy optic nerve cupping without splinter hemorrhage or notching. Previous optic nerve OCT obtained August 30, 2023 showed robust retinal nerve fiber layer thickness each eye without evidence of glaucomatous loss or defect. Other risk factors include ethnicity ( AF) as well as thinner than average pachymetry. There is no evidence of pseudoexfoliation, pigment dispersion or positive family history of glaucoma. Will continue to monitor his bilateral low risk glaucoma suspect with plan for repeat optic nerve OCT at return interval in 12 months. Chronic low-grade nongranulomatous anterior uveitis in patient with known systemic history of ulcerative colitis. He initially presented early July 2023 with severe nongranulomatous anterior uveitis with extensive posterior synechia that were broken with dilation. He continues to experience rebound symptoms of intraocular inflammation left eye and reports monthly episodes since September 2023 that improved with self prescribed Pred forte for several days. Likely would benefit from chronic low-dose use of topical steroid to reduce risk associated with chronic intraocular inflammation which includes both development of cataract, epiretinal membrane as well as macular edema and recurrent posterior synechia. Given history of low risk glaucoma suspect would prefer treating with loteprednol daily versus Pred forte given his risk factors for glaucoma. Discussed risks and benefits of treatment with low-dose chronic steroids including of cataract potential for accelerated development left eye as well as possible associated increased intraocular pressure. He understands the chronic intraocular inflammation also could be associated with accelerated development of cataract as well as epiretinal membrane and macular edema. He is agreeable to treatment with chronic daily low-dose topical steroid. Nonformulary request entered now or loteprednol 1 drop daily left eye. He understands that if he were to experience worsening symptoms of intraocular inflammation including redness, photophobia and eye pain he should call to be seen immediately to determine definitive diagnosis as well as severity of intraocular inflammation and an need for more aggressive treatment. He verbalizes understanding of symptoms of anterior uveitis and what to do if he were to experience worsening symptoms. Plan: Patient education as noted above reviewed exam findings now. Discussed risks and benefits of use of chronic low-dose lower profile risk of loteprednol daily left eye. Nonformulary request for loteprednol entered now. Order new glasses today. Plan for follow-up in 12 months with plan for repeat optic nerve OCT. Reviewed signs and symptoms of anterior uveitis and what to do if he were to experience worsening symptoms. Education: Glaucoma: Patient was educated regarding glaucoma/glaucoma suspect as well as the natural history of this diagnosis including prognosis. Stress importance of compliance and persistency with glaucoma medication when prescribed, timely follow up as well as the role of ancillary testing. Exclusion criteria for ancillary testing include significantly reduced acuity, mental status changes affecting the patient's ability to attend to the test or other physical limitations that would prohibit the patient's ability to participate in testing. Return to Clinic 12 months for exam with optic nerve OCT or sooner if need be. Ophthalmic medication reconciliation: He is currently using Pred forte left eye as needed for self prescribed treatment for nongranulomatous anterior uveitis left eye. Plan is for nonformulary Lotemax 1 drop daily left eye. Medication Reconciliation: Outpatient: Has the patient been taking medications as documented in the EMLR? YES: The patient has been taking medications as documented in the EMLR. Essential Medication List for Review used to complete this medication reconciliation. INCLUDED IN THIS LIST: Alphabetical list of active outpatient prescriptions dispensed from this [facility] (local) and dispensed from another [place] or [facility] facility (remote) as well as inpatient orders [...] whether with a VA or non-VA provider. JLV Link Data on this list may not be complete. Please check JLV. Allergies/ADRs (Tool #5) FACILITY ALLERGY/ADR -------- No Remote Allergy/ADR Data available for this patient [place] [facility] [place] No Known Allergies Med Recon NoGlossary (Tool #1) INCLUDED IN THIS LIST: Alphabetical list of active outpatient prescriptions dispensed from this VA (local) and dispensed from another VA or [facility] facility (remote) as well as inpatient orders (local pending and active), local clinic medications, locally documented non-VA medications, and local prescriptions that have or been discontinued in the past 90 days. Non-VA Meds Last Documented On: Jan 03, 2023 NOTE The display of VA prescriptions dispensed from another [place] or [facility] facility (remote) is limited to active outpatient prescription entries matched to National Drug File at the originating site and may not include some items such as investigational drugs, compounds, etc. NOT INCLUDED IN THIS LIST: Medications self-entered by the patient into personal health records (i.e. [facility]) are NOT included in this list. Non-VA medications documented outside this [place], remote inpatient orders (regardless of status) and remote clinic medications are NOT included in this list. The patient and provider must always discuss medications the patient is taking, regardless of where the medication was dispensed or obtained. OUTPT BISACODYL 5MG EC TAB (Status = Discontinued) TAKE FOUR TABLETS BY MOUTH ONE TIME TAKE 2 TABLETS AT 3PM AND THEN TAKE 2 TABLETS AT 7PM Rx# [id number] Last Released: QtDays Supply: 07/10 Rx Expiration Date: 04/15/24 Refills Remainin OUTPT BISACODYL 5MG EC TAB (Status = ) TAKE TWO TABLETS BY MOUTH TWICE DAILY TAKE 2 TABLETS AT 3PM AND THEN TAKE 2 TABLETS AT 7PM Rx# [id number] Last Released: 03/19/24 Qty/Days Supply: 11/09 Rx Expiration Date: 04/17/24 Refills Remainin Non-VA BUDESONIDE/FORMOTEROL INHL,ORAL INHALE BY MOUTH TWICE DAILY Medication prescribed by Non-VA provider. Indication: FOR ASTHMA Non-VA BUPROPION HCL 300MG 24HR SA TAB TAKE ONE TABLET BY MOUTH ONCE DAILY Medication prescribed by Non-VA provider. Indication: FOR DEPRESSION Non-VA LORAZEPAM 0.5MG TAB TAKE ONE TABLET BY MOUTH THREE TIMES A DAY NEEDED Medication prescribed by Non-VA provider. Indication: FOR ANXIETY Non-VA MARIJUANA MISCELLANEOUS USE GUMMIES DIRECTED AT BEDTIME Helps w/sleep OUTPT MELOXICAM 15MG TAB (Status = Active) TAKE ONE TABLET BY MOUTH ONCE DAILY Rx# [id number] Last Released: 04/19/24 Qty/Days Supply: Rx Expiration Date: 01/01/25 Refills Remainin OUTPT MESALAMINE 1200MG EC TAB (Status = Active/Suspended) TAKE FOUR TABLETS BY MOUTH ONCE DAILY Rx# [id number] Last Released: 04/24/24 Qty/Days Supply: 360/90 Rx Expiration Date: 11/06/24 Refills Remainin Non-VA MESALAMINE 400MG EC CAP TAKE 1 CAPSULE BY MOUTH ONCE DAILY Medication prescribed by Non-VA provider. Indication: FOR ULCERATIVE COLITIS OUTPT POLYETHYLENE GLYCOL 3350 FOR GI PREP (Status = ) TAKE ENTIRE CONTENTS OF 238GM BOTTLE BY MOUTH ONE TIME (MIX WITH CLEAR LIQUID AND DRINK INSTRUCTED BY GI PROVIDER) Rx# [id number] Last Released: 03/19/24 Qty/Days Supply: Rx Expiration Date: 04/15/24 Refills Remainin SUPPLIES 35 minutes /diego/ Nadir Peres OD CHIEF OF OPTOMETRY Signed: 04/30/2024 08:30 05/20/2024 ADDENDUM STATUS: COMPLETED Bilateral low risk glaucoma suspect also considered bilateral open angle with borderline findings,low risk. /diego/ Nadir Peres OD CHIEF OF OPTOMETRY Signed: 05/20/2024 06:42 NADIR PERES [facility]
[2024-06-27 14:12] VITALS: BMI 35.0
--- NOTE | 2024-06-28 10:24 | P.CONAN_ITS ---
Documented by User: Jia Larsen NP 06/28/24 10:25 HPI - Anesthesia Eval Consult details Narrative: 63yo M for Colonoscopy PMFSH Past Medical History Medical History (Updated 06/27/24 @ 14:13 by Yamilet Morgna RN) Arthritis Family history of sickle cell anemia PTSD (post-traumatic stress disorder) Ulcerative colitis Asthma Family History Family history of problems with anesthesia: No Surgical History Surgical History (Updated 06/27/24 @ 14:12 by Yamilet Morgan RN) Hx of shoulder surgery Hx of elbow surgery Hx of right knee surgery H/O colonoscopy History of Problems with Anesthesia: No Social History Social History Are you a primary pharmacist critical care to a significant other at home: No Do you presently have visiting nurse or other home services: No Patient Tobacco Use Status: Never used Tobacco Use of substances other than those prescribed or required for medical reasons: Yes Have you been hit, kicked, punched, or otherwise hurt by someone within the past year? If so, by whom?: No Are you DNR?: No Advance Directives: No Advance Directives Information Provided: Yes Recently lost weight without trying: No Nutrition Risks: No Nutritional Risk Poor oral hygiene: No Meds Allergies Allergy/AdvReac Type Severity Reaction Status Date / Time No Known Allergies Allergy Unverified 05/24/21 12:24 Home Medications ?Medication ?Instructions ?Recorded ?Confirmed ?Last Taken ?Type budesonide-formoterol HFA 160 2 puff inhalation BID 05/18/21 06/27/24 Unknown History mcg-4.5 mcg/actuation aerosol inhaler (Symbicort) bupropion HCl 300 mg 24 hr tablet, 300 mg PO QAM 05/18/21 06/27/24 Unknown History extended release lorazepam 0.5 mg tablet 1.5 mg PO BEDTIME 05/18/21 06/27/24 Unknown History mesalamine 1.2 gram tablet,delayed 4.8 g PO DAILY 06/27/24 06/27/24 Unknown History release (Lialda) Exam Height,Weight and Vital Signs: Height 5 ft 6.5 in Weight 99.79 kg Assessment and Plan Assessment Anesthesia Assessment: Chart Reviewed Final Anesthetic Review Family History of Problems with Anesthesia: No History of Problems with Anesthesia: No Documented by User: Libra Keene MD 07/01/24 08:16 [facility] Past Medical History Medical History (Updated 06/27/24 @ 14:13 by Yamilet Morgan RN) Arthritis Family history of sickle cell anemia PTSD (post-traumatic stress disorder) Ulcerative colitis Asthma Surgical History Surgical History (Updated 06/27/24 @ 14:12 by Yamilet Morgan RN) Hx of shoulder surgery Hx of elbow surgery Hx of right knee surgery H/O colonoscopy Social History Social History Are you a primary pharmacist critical care to a significant other at home: No Do you presently have visiting nurse or other home services: No Patient Tobacco Use Status: Never used Tobacco Use of substances other than those prescribed or required for medical reasons: Yes Have you been hit, kicked, punched, or otherwise hurt by someone within the past year? If so, by whom?: No Are you DNR?: No Advance Directives: No Advance Directives Information Provided: Yes Recently lost weight without trying: No Nutrition Risks: No Nutritional Risk Poor oral hygiene: No Meds Allergies Allergy/AdvReac Type Severity Reaction Status Date / Time No Known Allergies Allergy Unverified 05/24/21 12:24 Home Medications ?Medication ?Instructions ?Recorded ?Confirmed ?Last Taken ?Type budesonide-formoterol HFA 160 2 puff inhalation BID 05/18/21 06/27/24 Unknown History mcg-4.5 mcg/actuation aerosol inhaler (Symbicort) bupropion HCl 300 mg 24 hr tablet, 300 mg PO QAM 05/18/21 06/27/24 Unknown History extended release lorazepam 0.5 mg tablet 1.5 mg PO BEDTIME 05/18/21 06/27/24 Unknown History mesalamine 1.2 gram tablet,delayed 4.8 g PO DAILY 06/27/24 06/27/24 Unknown History release (Lialda) Exam Airway Mallampati Class: II TM Dist: >3cm Neck ROM: Full Assessment and Plan Assessment Anesthesia Assessment: Anesthesia Plan Discussed Final Anesthetic Review NPO: Yes ASA Class: II Final Preanesthetic Review: No Changes in Pt Med Stat, Meds/Allgs Chart Reviewed, Consent Obtained/Reviewed and Anes Risks/Benef Reviewed Patient Risk: Intermediate Procedure Risk: Low Anesthetic Plan Anesthetic Plan: TIVA Disposition: Standard PACU
[2024-07-01 07:51] VITALS: BP 140/74; PULSE 66; RESP 15; TEMP 36.7; O2SAT 96
[2024-07-01] MEDS: Lactated Ringers 1,000 ML 100 ML IVCONT (08:22)
[2024-07-01 09:35] VITALS: BP 125/64; PULSE 62; RESP 16; TEMP 37; O2SAT 98
--- NOTE | 2024-07-01 09:37 | PM.OP ---
Brief Operative Note Date of Service: 07/01/24 Pre-op diagnosis: Screening, Hx of ulcerative colitis Post-op diagnosis: other (Diverticulosis, R/O dysplasia) Procedure: Colonoscopy to the cecum and TI with biopsies Surgeon: Flash Herrera MD Anesthesia: MAC Was an Graduate Recruiter used for this Procedure?: No Estimated blood loss (mL): 2.0 Pathology: other (A. Ascending colon B. Transverse colon C. Descending colon D. Sigmoid colon E. Rectum) Condition: stable Disposition: PACU
[2024-07-01 09:50] VITALS: BP 134/65; PULSE 30; RESP 16; TEMP 37; O2SAT 100
--- NOTE | 2024-07-01 10:50 | OP_ITS ---
DATE OF SERVICE: 07/01/2024 SURGEON: Flash Herrera MD INDICATIONS: The patient presents for evaluation of long-standing ulcerative colitis, family history of colon cancer, and colorectal cancer screening. Full consent has been obtained from him for this, including risks of bleeding and perforation. PREOPERATIVE DIAGNOSIS: POSTOPERATIVE DIAGNOSIS: PROCEDURE PERFORMED: Colonoscopy to the cecum and terminal ileum with multiple biopsies. ESTIMATED BLOOD LOSS: COMPLICATIONS: ANESTHESIA: Monitored anesthesia care. ASSISTANTS: SPECIMENS: PREOPERATIVE DIAGNOSES: Long-standing history of ulcerative colitis, family history of colorectal cancer, and colorectal cancer screening. POSTOPERATIVE DIAGNOSES: Long-standing history of ulcerative colitis, family history of colorectal cancer, and colorectal cancer screening, rule out dysplasia, mild diverticulosis, small internal hemorrhoids. DESCRIPTION OF PROCEDURE: The patient was placed in the left lateral decubitus position. The digital rectal exam revealed no abnormalities. The Olympus video pediatric colonoscope was entered into the rectum and advanced easily to the cecum. Once in the cecum, I did identify normal-appearing cecal pouch with normal-appearing appendiceal orifice and ileocecal valve. The terminal ileum was cannulated and appeared normal. Scope was withdrawn back in the colon. The entire cecum and ileocecal valve appeared normal. The scope was then slowly withdrawn assessing all mucosal surfaces carefully. Preparation was excellent. I did not visualize any sign of active colitis, polyps, nor angiodysplasias. There was a mild amount of sigmoid diverticulosis. I did obtain random biopsies in the ascending colon, transverse colon, descending colon, sigmoid colon, and rectum. In the rectum, scope was retroflexed visualizing some internal hemorrhoids, but no other pathology. The rectal mucosa appeared normal. The scope was straightened and withdrawn from the patient. He tolerated the procedure well and was returned to the recovery area in stable condition. IMPRESSION: 1. Diverticulosis. 2. Internal hemorrhoids. 3. History of ulcerative colitis, rule out dysplasia. PLAN: The results of the biopsies will be checked. Assuming there is no dysplasia, I would recommend a repeat colonoscopy in 3 years for further surveillance given the long-standing history of ulcerative colitis, and family history of colon cancer. He was advised not to use any aspirin or NSAIDs for 1 week. He was advised to continue his mesalamine at 4.8 g daily. If things are otherwise stable, he could see me in the interim on a p.r.n. basis. MD MELLY Martinez/SOREN / [id number]
== END 2024-07-01 10:21 | disposition home or self-care (01) ==
PROVIDERS: Visit Provider Internal Medicine
PROC: 0DJD8ZZ Inspection of Lower Intestinal Tract, Via Natural or Artificial Opening Endoscopic (ICD-10-PCS; CPT 45378; principal; 2024-07-01 08:40)
DX: Z12.11 Encounter for screening for malignant neoplasm of colon (principal); Z80.0 Family history of malignant neoplasm of digestive organs; K51.90 Ulcerative colitis, unspecified, without complications; K57.30 Diverticulosis of large intestine without perforation or abscess without bleeding; K64.8 Other hemorrhoids; J45.909 Unspecified asthma, uncomplicated; F43.10 Post-traumatic stress disorder, unspecified; Z79.51 Long term (current) use of inhaled steroids; Z79.899 Other long term (current) drug therapy; Z98.890 Other specified postprocedural states
CPT/HCPCS: 45380; 88305; J2003; J2704